=== PATIENT | male | born 1945 | race Caucasian/White ===

== ENCOUNTER → 2017-10-07 | Outpatient (CLI) | payer MEDICARE ==
--- NOTE | 2017-10-07 12:21 | CONS ---
CONSULTATION DATE OF SERVICE: 10/07/2018 A 72-year-old gentleman who has been evaluated in the sleep center for possible obstructive sleep apnea-hypopnea syndrome. HISTORY OF PRESENT ILLNESS/SLEEP-WAKE EVALUATION: Patient usual sleep schedule from around 10 to 10:30 p.m. until 6 to 7 a.m. Sometimes he has problem with falling asleep, although no TV in bedroom. He sleeps in different positions including the side, back and stomach. According to the patient's , he has extremely loud snoring and she cannot sleep with him. He wakes up from sleep 3 times with nocturia. No history of hypnagogic hallucinations, sleep paralysis or cataplexy. The patient wakes up also with a dry mouth. In the morning, patient wakes up tired, feeling sleepy during the day, has sexual dysfunction. [place] Sleepiness Scale significantly increased to 13. PAST MEDICAL HISTORY: Positive for hypertension, hyperlipidemia, diabetes mellitus. PAST SURGICAL HISTORY: Total left knee replacement in 2006. MEDICATIONS: Bisoprolol, amlodipine, pravastatin, enalapril, doxazosin, Janumet. SOCIAL HISTORY: Negative for smoking or using alcohol. FAMILY HISTORY: Family history is unknown. He left his country by himself many years ago. REVIEW OF SYSTEMS: Multiple awakenings from sleep, sleepiness during the day, sometimes swelling of the legs. No fevers. No double vision. No recent chest pain. No shortness of breath. No abdominal pain. No bleeding episodes. No blood in urine. No seizure episodes. PHYSICAL EXAM: During physical exam, gentleman without distress. VITAL SIGNS: BP 138/72, HR 62, RR 16, height 5 feet 5 inches, weight 234, BMI 38.9. HEENT: PERRLA, EOMI. Oropharynx extremely low position of soft palate, wide neck is 17- 1/2 inches in circumference. NECK: Wide neck 17-1/2 inches in circumference. Supple, no JVD. Thyroid is not palpable. LUNGS: Clear to percussion and to auscultation. Good air exchange. No wheezing or rhonchi. HEART: S1, S2 regular. No murmurs, gallops, or rubs. ABDOMEN: Obese. EXTREMITIES: 1+ bilateral ankle edema. DEMOLITION ENGINEER: Awake, alert, and oriented X3. Cranial nerves 2 to 7 intact. There is no fasciculation or atrophy. noted. No focal deficits observed. IMPRESSION: 1. Loud snoring, multiple awakenings from sleep with nocturia, extremely low position of soft palate, sleepiness during the day. [place] Sleepiness Scale increased to 13, wide neck. Obstructive sleep apnea-hypopnea syndrome. 2. Obesity, body mass index 38.9. 3. Hypertension. 4. Diabetes mellitus. 5. Hyperlipidemia. 6. Status post total left knee replacement in 2006. PLAN: 1. Polysomnography for evaluation of patient's breathing during sleep. 2. CPAP/BiPAP titration if sleep study confirms obstructive sleep apnea-hypopnea syndrome. 3. Preferable position during sleep on the side. 4. No driving if patient feels any sleepiness. Patient is aware of civil and criminal liability for unsafe driving. 5. I will see patient for follow up visit to explain results of testing and following plan. Thank you very much for referring this patient for consultation. Sincerely, Keegan Curry MD, PhD, FAASM Diplomat of [place] [employer] [place] [employer] Mixer Pigment of [facility] [place] MMODL / SHAUNAN: [id number] /
== END | disposition home or self-care (01) ==
LOC: SLEEP 10:54
PROVIDERS: ATTEND Internal Medicine
DX: G47.33 Obstructive sleep apnea (adult) (pediatric) (principal); E66.9 Obesity, unspecified; I10 Essential (primary) hypertension; E11.9 Type 2 diabetes mellitus without complications; E78.5 Hyperlipidemia, unspecified; Z96.652 Presence of left artificial knee joint; Z79.899 Other long term (current) drug therapy; Z68.38 Body mass index [BMI] 38.0-38.9, adult; Z79.84 Long term (current) use of oral hypoglycemic drugs
CPT/HCPCS: 99211

== ENCOUNTER → 2018-01-19 | Outpatient (CLI) | payer MEDICARE ==
--- NOTE | 2018-01-19 15:11 | PN ---
PROGRESS NOTE DATE OF SERVICE: 01/19/2019 A 72-year-old gentleman who has been followed in the Sleep Center for treatment of obstructive sleep apnea-hypopnea syndrome. By results of home sleep test, patient has obstructive sleep apnea-hypopnea syndrome and I explained results of the sleep study to the patient in details. He was started on treatment with auto PAP treatment and today is his first visit for followup with his CPAP equipment. Patient is able to use CPAP equipment without significant problems and he thinks that his sleep is better with CPAP than before and feels better during the day. [place] Sleepiness Scale is 6. I checked his CPAP unit. Usage is 28/30 nights and 26/30 nights more than 4 hours. Average usage is 6.4 hours. Machine is automatic regimen from the pressure 5-11 cm of water. Medium pressure is 10.5 cm of water. Apnea-hypopnea index 7.5. Sometimes, patient feels that his mouth feels dry. He is using a full-face mask. MEDICATIONS: Bisoprolol, amlodipine, pravastatin, enalapril, doxazosin, Janumet. PHYSICAL EXAM: Patient in no distress. BP 141/78, HR 68, RR 20, weight 238.2, height 5, 5-1/2, body mass index 39.0, temperature 97.7. OROPHARYNX: Low position of soft palate. ABDOMEN: Obese. Neck Supple, no JVD. Thyroid is not palpable. LUNGS Clear to percussion and to auscultation. Good air exchange. No wheezing or rhonchi. HEART S1, S2 regular. No murmurs, gallops, or rubs. EXTREMITIES No clubbing or cyanosis. [employer] Awake, alert, and oriented X3. Cranial nerves 2 to 7 intact. There is no fasciculation or atrophy. noted. No focal deficits observed. IMPRESSION: 1. Obstructive sleep apnea-hypopnea syndrome. Patient demonstrated great compliance with treatment, benefitting from treatment. 2. Obesity. 3. Hypertension. 4. Hyperlipidemia. 5. Diabetes. PLAN: 1. Patient will continue to use CPAP equipment every night for the whole night. 2. I will increase pressure to maximal level of 15 cm of water. 3. Losing weight. 4. Sleep hygiene with regular time in bed for at least 8 hours. 5. No driving if feels any sleepiness. 6. I will explain to patient how to adjust humidifier on his machine and I will adjust humidity to the high level. Thank you very much for allowing me to participate in the management of your patient. Sincerely, Keegan Curry MD, PhD, FAASM Diplomat of [place] [employer] [place] [employer] Certified Indoor Environmentalist of [facility] [place] MMDEVONTE / MOI: [id number] /
== END | disposition home or self-care (01) ==
LOC: SLEEP 13:29
PROVIDERS: ATTEND Internal Medicine
DX: G47.33 Obstructive sleep apnea (adult) (pediatric) (principal); E66.9 Obesity, unspecified; I10 Essential (primary) hypertension; E78.5 Hyperlipidemia, unspecified; E11.9 Type 2 diabetes mellitus without complications; Z68.39 Body mass index [BMI] 39.0-39.9, adult; Z99.89 Dependence on other enabling machines and devices; Z79.899 Other long term (current) drug therapy

== ENCOUNTER 2018-02-25 19:10 | Emergency (ER) | payer MEDICARE ==
[2018-02-25 19:42] VITALS: PULSE 76
--- NOTE | 2018-02-25 20:38 | XR ---
EXAMINATION TYPE: XR elbow complete RT DATE OF EXAM: 02/25/2018 COMPARISON: NONE HISTORY: Elbow pain TECHNIQUE: 3 views FINDINGS: I see no fracture nor dislocation. There is a large spur on the olecranon process of the ul na. There is posterior soft tissue swelling. There is no sign of joint effusion. Calcification at the medial humeral condyle consistent with old injury. IMPRESSION: No acute bony abnormality. Large olecranon process spur. Soft tissue swelling.
[2018-02-25] MEDS ORDERED: HYDROcodone/APAP 5-325MG 1 EACH TAB PO STA (21:21)
--- NOTE | 2018-02-25 21:24 | ED ---
General Adult HPI - General Chief complaint: Extremity Injury, Lower Stated complaint: Arm Pain Time Seen by Provider: 02/25/18 21:06 Source: patient, family Mode of arrival: ambulatory Limitations: no limitations - History of Present Illness Initial comments: Patient is a 72-year-old male presenting for right elbow pain for last 3 days. He states that several years ago, he was diagnosed with bursitis in the right elbow. Currently, he denies any injury and states that he has been able to move the elbow but there is some decreased range of motion and some redness at the elbow. He denies any fevers or chills currently. - Related Data Previous Rx's Medication Instructions Recorded HYDROcodone/APAP 5-325MG [[place] 1 tab PO Q6HR PRN #12 tab 02/25/18 5-325] Sulfamethox-Tmp 800-160Mg [Bactrim 1 tab PO Q12HR 14 Days #28 tab 02/25/18 DS 800-160 mg] Allergies Allergy/AdvReac Type Severity Reaction Status Date / Time ibuprofen [From Motrin] Allergy Unknown Verified 02/25/18 19:43 Review of Systems ROS Statement: Those systems with pertinent positive or pertinent negative responses have been documented in the HPI. Constitutional: Negative for chills, fatigue and fever. HENT: Negative for congestion. Respiratory: Negative for chest tightness, shortness of breath and wheezing. Negative for cough Cardiovascular: Negative for chest pain and palpitations. Gastrointestinal: Negative for abdominal pain. Negative for abdominal distention , diarrhea, nausea and vomiting. Genitourinary: Negative for dysuria. Musculoskeletal: Negative for back pain, neck pain and neck stiffness. Positive for right elbow pain and decreased range of motion Skin: Negative for color change. Positive for erythema of the skin overlying the olecranon process Neurological: Negative for dizziness, speech difficulty, weakness and light- headedness. Psychiatric/Behavioral: Negative for agitation and confusion. Negative for anxiety ROS Other: All systems not noted in ROS Statement are negative. Past Medical History Past Medical History: Diabetes Mellitus, Hyperlipidemia, Hypertension History of Any Multi-Drug Resistant Organisms: None Reported Past Surgical History: Orthopedic Surgery Past Psychological History: No Psychological Hx Reported Smoking Status: Never smoker Past Alcohol Use History: None Reported Past Drug Use History: None Reported General Exam - General Exam Comments Initial Comments: Constitutional: Pt is oriented to person, place, and time. Pt appears well- developed and well-nourished. No distress. HENT: Head: Normocephalic and atraumatic. Eyes: EOM are normal. Neck: Normal range of motion. Neck supple. Cardiovascular: Normal rate, regular rhythm, S1 normal, S2 normal and normal heart sounds. Exam reveals no gallop and no friction rub. No murmur heard. Pulmonary/Chest: Effort normal and breath sounds normal. No tachypnea and no bradypnea. No respiratory distress. No wheezes or rales noted. Abdominal: Soft. Bowel sounds are normal. Pt exhibits no shifting dullness, no distension, no pulsatile liver, no fluid wave, no abdominal bruit and no ascites. There is no tenderness. There is no rigidity, no rebound, no guarding, no tenderness at McBurney's point and negative Thakkar's sign. Musculoskeletal: Decreased range of motion of the right elbow with extension limited to 160. There is mild tenderness to palpation of the olecranon process and elbow is able to be actively ranged without significant tenderness. Neurological: Pt is alert and oriented to person, place, and time. No cranial nerve deficit. Skin: Skin is warm and dry. No rash noted. Pt is not diaphoretic. No erythema. No pallor. Psychiatric: Pt has a normal mood and affect. Pt behavior is normal. Thought content normal. Limitations: no limitations Course Vital Signs 02/25/18 02/25/18 19:31 23:36 Temperature 98.5 F 97 F L Pulse Rate 76 76 Respiratory 20 16 Rate Blood Pressure 166/81 173/89 O2 Sat by Pulse 97 96 Oximetry Medical Decision Making - Medical Decision Making Laboratory studies showed that there is no leukocytosis and CRP was elevated at 30.8 but he is sore was within normal limits. Additionally, x-ray of the elbow showed no evidence of emergent pathology such as osteomyelitis. Because the patient did have good range of motion, it is felt that septic joint is extremely unlikely considering the lab findings and that this appears to be more likely septic bursitis. Because of this, is felt that the patient could be safely discharged with very close follow-up with orthopedics. He was also given a prescription for Bactrim.Explained all labs and diagnostic test results and that we will discharge the patient home and patient is to follow up with orthopedics in 1-2 days and return to the ED if symptoms worsen. Pt is agreeable to plan. - Lab Data Result diagrams: 02/25/18 21:50 02/25/18 21:50 Lab Results 02/25/18 02/25/18 Range/Units 21:50 21:50 WBC 7.7 (3.8-10.6) k/uL RBC 4.95 (4.30-5.90) m/uL Hgb 13.4 (13.0-17.5) gm/dL Hct 40.1 (39.0-53.0) % MCV 81.0 (80.0-100.0) fL MCH 27.1 (25.0-35.0) pg MCHC 33.4 (31.0-37.0) g/dL RDW 14.6 (11.5-15.5) % Plt Count 164 (150-450) k/uL Neutrophils % 70 % Lymphocytes % 18 % Monocytes % 7 % Eosinophils % 3 % Basophils % 1 % Neutrophils # 5.4 (1.3-7.7) k/uL Lymphocytes # 1.3 (1.0-4.8) k/uL Monocytes # 0.5 (0-1.0) k/uL Eosinophils # 0.2 (0-0.7) k/uL Basophils # 0.0 (0-0.2) k/uL ESR 15 (0-15) mm/hr Sodium 141 (137-145) mmol/L Potassium 3.9 (3.5-5.1) mmol/L Chloride 105 (98-107) mmol/L Carbon Dioxide 29 (22-30) mmol/L Anion Gap 7 mmol/L BUN 25 H (9-20) mg/dL Creatinine 1.30 H (0.66-1.25) mg/dL Est GFR (CKD-EPI)AfAm 63 (>60 ml/min/1.73 sqM) Est GFR (CKD-EPI)NonAf 55 (>60 ml/min/1.73 sqM) Glucose 113 H (74-99) mg/dL Calcium 10.4 H (8.4-10.2) mg/dL Magnesium 1.9 (1.6-2.3) mg/dL C-Reactive Protein 30.8 H (<10.0) mg/L Disposition Clinical Impression: Olecranon bursitis, right elbow Disposition: HOME SELF-CARE Condition: Good Instructions: Elbow Bursitis (ED) Prescriptions: HYDROcodone/APAP 5-325MG [[place] 5-325] 1 tab PO Q6HR PRN #12 tab PRN Reason: Pain Sulfamethox-Tmp 800-160Mg [Bactrim DS 800-160 mg] 1 tab PO Q12HR 14 Days #28 tab Is patient prescribed a controlled substance at d/c from ED?: Yes When asked, does pt state using other controlled substances?: No If prescribed controlled substance>3 days was MAPS reviewed?: Prescribed <3 Days Referrals: Chalo Arvizu MD [Primary Care Provider] - 1-2 days Mason Reyna MD [STAFF PHYSICIAN] - 1-2 days Time of Disposition: 23:29
[2018-02-25 22:01] LABS: Basophils % (A) 1 %; Eosinophils # (A) 0.2 k/uL (0-0.7); Eosinophils % (A) 3 %; HCT 40.1 % (39.0-53.0); HGB 13.4 gm/dL (13.0-17.5); Lymphocytes # (A) 1.3 k/uL (1.0-4.8); Lymphocytes % (A) 18 %; MCH 27.1 pg (25.0-35.0); MCHC 33.4 g/dL (31.0-37.0); Mean Platelet Volume 7.3; Monocytes # (A) 0.5 k/uL (0-1.0); Monocytes % (A) 7 %; Neutrophils # (A) 5.4 k/uL (1.3-7.7); Neutrophils % (A) 70 %; Platelet Count 164 k/uL (150-450); RBC 4.95 m/uL (4.30-5.90); RDW 14.6 % (11.5-15.5); WBC 7.7 k/uL (3.8-10.6)
[2018-02-25 22:20] LABS: C Reactive Protein 30.8 mg/L (<10.0); Calcium 10.4 mg/dL (8.4-10.2); Magnesium 1.9 mg/dL (1.6-2.3); Potassium 3.9 mmol/L (3.5-5.1)
[2018-02-25 23:14] LABS: Erythrocyte Sedimentation Rate 15 mm/hr (0-15)
[2018-02-25] MEDS ORDERED: SULFAMETHOX-TMP 800-160MG 1 EACH TAB PO STA (23:31)
[2018-02-25 23:39] VITALS: BP 173/89; RESP 16; TEMP 97
== END 2018-02-25 23:41 | disposition home or self-care (01) ==
LOC: EC 19:10
DX: M70.21 Olecranon bursitis, right elbow (principal); R79.82 Elevated C-reactive protein (CRP); Z88.6 Allergy status to analgesic agent
CPT/HCPCS: 36415; 80048; 83735; 85025; 85652; 86140; 99283

== ENCOUNTER → 2018-04-28 | Outpatient (CLI) | payer MEDICARE ==
--- NOTE | 2018-04-28 12:45 | SFUN ---
SLEEP CENTER FOLLOW UP NOTE DATE OF SERVICE: 04/28/2018 This 72-year-old gentleman has been followed in sleep center for treatment of obstructive sleep apnea-hypopnea syndrome. The patient continued to use his CPAP equipment every night for the whole night. Sleep is better with that except sometimes feels dryness in his mouth. He always has water in the humidifier chamber. [place] Sleepiness Scale today is 2. I checked his CPAP unit. Range of the pressure 5 to 11 cm of water. Most of the time pressure in the range of 11 cm of water. Leak is 22 L/minute, which is borderline. Apnea-hypopnea index 5.5 for the last month, which is significantly better than during previous visit when it was 7.5. Usage is 100% of the night more than 4 hours. Average usage is 7.1 hours. MEDICATIONS: Bisoprolol, amlodipine, pravastatin, enalapril, doxazosin, Janumet. PHYSICAL EXAMINATION: During physical exam, patient in no distress. VITAL SIGNS: BP 144/74, HR 62, RR 16, weight 235, height 5 feet 5 inches, body mass index 39.1, temperature 97.6, oxygen saturation in room air 96%. HEENT: PERRLA, EOMI. Oropharynx low position of soft palate. NECK: Supple, no JVD. Thyroid is not palpable. LUNGS: Clear to percussion and to auscultation. Good air exchange. No wheezing or rhonchi. HEART: S1, S2 regular. No murmurs, gallops, or rubs. ABDOMEN: Soft and nontender. Bowel sounds are present. No organomegaly appreciated. EXTREMITIES: No clubbing or cyanosis. TONE REGULATOR: Awake, alert, and oriented X3. Cranial nerves 2 to 7 intact. There is no fasciculation or atrophy. noted. No focal deficits observed. IMPRESSION: 1. Obstructive sleep apnea-hypopnea syndrome. The patient demonstrated 100% compliance with treatment, benefitting from treatment, normalization of breathing on CPAP. 2. Obesity. 3. Hypertension. 4. Hyperlipidemia. 5. Diabetes mellitus. PLAN: 1. Prescription for additional chinstrap. 2. I explained to the patient how to adjust humidity on his CPAP unit and I adjusted humidity up to level of 6 instead of 4 and we switched to manual adjustments from automatic. 3. The patient will continue to use CPAP equipment every night for the whole night. 4. Losing weight. 5. Prescription for all necessary CPAP supplies will be maintained. 6. Followup visit in 1 year or earlier if patient has any problems. Thank you very much for allowing me to participate in management of your patient. Sincerely, Keegan Curry MD, PhD, FAASM Diplomat of [employer] [place] [employer] of Medical Specialties [employer] [place] [employer] of Internal Medicine Pattern Setter of [facility] [place] MMODL / IJN: [id number] /
== END ==
LOC: SLEEP 10:51
PROVIDERS: ATTEND Internal Medicine
DX: G47.33 Obstructive sleep apnea (adult) (pediatric) (principal); E66.9 Obesity, unspecified; I10 Essential (primary) hypertension; E78.5 Hyperlipidemia, unspecified; E11.9 Type 2 diabetes mellitus without complications; Z99.89 Dependence on other enabling machines and devices; Z79.84 Long term (current) use of oral hypoglycemic drugs; Z79.899 Other long term (current) drug therapy; Z68.39 Body mass index [BMI] 39.0-39.9, adult

== ENCOUNTER → 2018-12-08 | Outpatient (CLI) | payer MEDICARE ==
--- NOTE | 2018-12-08 16:48 | PN ---
PROGRESS NOTE DATE OF SERVICE: 12/08/2018 This patient is a 73-year-old gentleman who has been followed in Sleep Center for treatment of obstructive sleep apnea-hypopnea syndrome. The patient continues to use his CPAP equipment every night but sometimes feels that the pressure is too high in the middle of the night and he has difficulties with the pressure. He is using a full-face mask. I checked his CPAP unit. It is in automatic regimen with the range of pressure from 5 to 15. Most of the time pressure is in the range of 11.3. Leak is 35 L/minute, which is borderline for the full-face mask. Apnea-hypopnea index 8.1. Patient is using the equipment every night, and in / nights for more than 4 hours with average usage 6.1 hours per night, which is normal compliance. [place] Sleepiness Scale today is 3, which is normal. MEDICATIONS: 1. Bisoprolol. 2. Amlodipine. 3. Pravastatin. 4. Enalapril. 5. Doxazosin. 6. Janumet. PHYSICAL EXAMINATION: GENERAL: A pleasant patient in no distress. VITAL SIGNS: BP 145/80, HR 73, RR 16, height 5 feet 7 inches, weight 232, which is 3 pounds less than during his previous visit, temperature 97.6, oxygen saturation at room air 96%. HEENT: PERRLA, EOMI. Evaluation of oropharynx showed tongue protrudes midline. Low position of soft palate. Mallampati IV. NECK: Supple. No JVD. Thyroid is not palpable. LUNGS: Clear to percussion and to auscultation. Good air exchange. No wheezing or rhonchi. HEART: S1, S2 regular. No murmurs, gallops or rubs. ABDOMEN: Obese. EXTREMITIES: No clubbing or cyanosis. TIRE GROOVER: Awake, alert, and oriented X3. Cranial nerves 2 to 7 intact. There is no fasciculation or atrophy. noted. No focal deficits observed. IMPRESSION: 1. Obstructive sleep apnea-hypopnea syndrome. Patient has demonstrated great compliance with treatment, benefitting from treatment. 2. The patient has difficulties in the middle of the night; he feels the pressure is high. 3. Obesity. 4. Hypertension. 5. Hyperlipidemia. 6. Diabetes mellitus. PLAN: 1. Patient will continue to use CPAP equipment every night for the whole night. 2. I will change the maximum pressure of the machine down to 11 cm of water. 3. Continue to lose weight. 4. Sleep hygiene with regular time in bed for 7-1/2 hours. 5. No driving if feeling any sleepiness. Thank you very much for allowing me to participate in the management of your patient. Sincerely, Keegan Curry MD, PhD, FAASM Diplomat of [place] [employer]ties [place] [employer] Medicine Director Of Safety And Security of [facility] [place] MMODL / IJN: [id number] /
== END | disposition home or self-care (01) ==
LOC: SLEEP 15:21
PROVIDERS: ATTEND Internal Medicine
DX: G47.33 Obstructive sleep apnea (adult) (pediatric) (principal); E66.9 Obesity, unspecified; I10 Essential (primary) hypertension; E78.5 Hyperlipidemia, unspecified; E11.9 Type 2 diabetes mellitus without complications; Z99.89 Dependence on other enabling machines and devices; Z79.84 Long term (current) use of oral hypoglycemic drugs; Z79.899 Other long term (current) drug therapy; Z68.36 Body mass index [BMI] 36.0-36.9, adult

== ENCOUNTER → 2020-03-06 | Outpatient (CLI) | payer MEDICARE ==
--- NOTE | 2020-03-06 23:05 | US ---
EXAMINATION TYPE: US scrotum with doppler. Grayscale and color Doppler Duplex imaging performed of t jyoti scrotum. DATE OF EXAM: 03/06/2020 COMPARISON: NONE CLINICAL HISTORY: Left groin pain R10.32. edema left testicle, pain EXAM MEASUREMENTS: TESTICLES: Right Testicle: 4.2 x 2.3 x 2.6 cm Left Testicle: 4.0 x 2.2 x 3.2 cm EPIDIDYMIS HEAD: Right Epididymis: 0.9 cm Left Epididymis: 0.7 cm Doppler performed to assess for testicular vascularity; good bilateral color flow and waveforms are s een. There is no evidence of testicular torsion. Presence of hydroceles: yes, fluid collection = 5.5cm on the right and 5.1cm on the left Presence of varicoceles: prominent vessels lateral to left testicle IMPRESSION: Bilateral hydroceles.
== END | disposition home or self-care (01) ==
LOC: RADUSWWP 03-05 16:01
PROVIDERS: ATTEND Family Medicine
DX: N43.3 Hydrocele, unspecified (principal)
CPT/HCPCS: 76870; 93975

== ENCOUNTER → 2020-04-01 | Outpatient (CLI) | payer MEDICARE ==
--- NOTE | 2020-04-01 13:55 | CT ---
EXAMINATION TYPE: CT abdomen pelvis w con DATE OF EXAM: 04/01/2020 COMPARISON: None HISTORY: Left sided inguinal hernia. CT DLP: 1939.4 mGycm Automated exposure control for dose reduction was used. TECHNIQUE: Helical acquisition of images from the lung bases through the pelvis have been completed. CONTRAST: Performed without Oral Contrast and with IV Contrast, patient injected with 80ml mL of Isovue 300. FINDINGS: There may be calcified right hilar node. There is a pericardial effusion measuring approxim ately 16 mm in greatest thickness adjacent to the right atrium, coronal image #39. LUNG BASES: No significant abnormality is appreciated. AORTA: No significant abnormality is appreciated. LIVER/GB: Liver is enlarged and shows low-attenuation suggesting hepatic steatosis, gallbladder is no rmal. PANCREAS: No significant abnormality is seen. SPLEEN: No significant abnormality is seen. ADRENALS: No significant abnormality is seen. KIDNEYS: Probable cortical cysts associated with the kidneys, there is no evident hydronephrosis or c alculus REPRODUCTIVE ORGANS: No significant abnormality is seen BOWEL: Left inguinal hernia contains colon extending to the left hemiscrotum level, sigmoid colon do es show associated diverticular change. FREE AIR: No Free Air visible. ASCITES: None visible. PELVIC ADENOPATHY: None visualized. RETROPERITONEAL ADENOPATHY: No Retroperitoneal Adenopathy visible. URINARY BLADDER: No significant abnormality is seen. OSSEOUS STRUCTURES: Degenerative disc changes and facet arthropathy noted in the lumbar spine. IMPRESSION: PERICARDIAL EFFUSION. LEFT INGUINAL HERNIA DESCRIBED. HEPATOMEGALY, HEPATIC STEATOSIS.
== END | disposition home or self-care (01) ==
LOC: RADCTMAIN 11:32
PROVIDERS: ATTEND Surgery
DX: I31.3 Pericardial effusion (noninflammatory) (principal); K40.90 Unilateral inguinal hernia, without obstruction or gangrene, not specified as recurrent; K76.0 Fatty (change of) liver, not elsewhere classified; R16.0 Hepatomegaly, not elsewhere classified
CPT/HCPCS: 82565; 84520; 74177; 36415; Q9967

== ENCOUNTER → 2020-05-22 | Outpatient (CLI) | payer MEDICARE | END | disposition home or self-care (01) | LOC: LABWHC1 11:26 | PROVIDERS: ATTEND Family Medicine | DX: Z20.828 Contact with and (suspected) exposure to other viral communicable diseases (principal) | CPT/HCPCS: U0003; C9803 ==

== ENCOUNTER 2020-06-18 06:34 | Day surgery (SDC) | payer MEDICARE ==
[2020-06-17 08:20] VITALS: BMI 28.6
[~2020-06-18 06:34] MED LIST: ALPRAZolam 0.25 MG TAB PO PRN; ALPRAZolam 0.5 MG TAB PO PRN; NITROGLYCERIN SL TABS 0.4 MG TAB SUBLINGUAL PRN; SODIUM CHLORIDE 0.9% 1,000 ML in EMPTY BAG 1 BAG IV ONE
[2020-06-18] MEDS ORDERED: SODIUM CHLORIDE 0.9% 1,000 ML IV ONE (06:54)
[2020-06-18] MEDS ORDERED: amLODIPine 5 MG TAB PO STA (06:56)
[2020-06-18] MEDS ORDERED: lisinopriL 20 MG TAB PO STA ×2 (06:56→07:22)
[2020-06-18] MEDS ORDERED: ASPIRIN 325 MG TAB PO ONE (07:00)
[2020-06-18] MEDS ORDERED: ATORVASTATIN 80 MG TAB PO ONE (07:00)
[2020-06-18 07:10] VITALS: TEMP 98.1
[2020-06-18 07:14] LABS: Basophils % (A) 1 %; Eosinophils # (A) 0.2 k/uL (0-0.7); Eosinophils % (A) 4 %; HCT 37.3 % (39.0-53.0); HGB 12.2 gm/dL (13.0-17.5); Lymphocytes # (A) 1.2 k/uL (1.0-4.8); Lymphocytes % (A) 20 %; MCH 26.6 pg (25.0-35.0); MCHC 32.7 g/dL (31.0-37.0); MCV 81.4 fL (80.0-100.0); Mean Platelet Volume 7.2; Monocytes # (A) 0.4 k/uL (0-1.0); Monocytes % (A) 7 %; Neutrophils # (A) 4.1 k/uL (1.3-7.7); Neutrophils % (A) 67 %; Platelet Count 177 k/uL (150-450); RBC 4.58 m/uL (4.30-5.90); WBC 6.2 k/uL (3.8-10.6)
[2020-06-18 07:22] LABS: Glucose,Whole Blood 137 mg/dL (75-99)
[2020-06-18 07:29] LABS: Calcium 9.9 mg/dL (8.4-10.2)
[2020-06-18 07:32] LABS: Potassium 4.7 mmol/L (3.5-5.1)
[2020-06-18] MEDS ORDERED: MIDAZOLAM 2 MG/2 ML VIAL IVP ONE ×2 (07:59→08:09)
[2020-06-18] MEDS ORDERED: LIDOCAINE 1% INJ 10MG/ML (10 ML MDV) SQ ONE (08:01)
[2020-06-18] MEDS ORDERED: HEPARIN SODIUM 1,000 UN/ML (10ML VL) IV ONE (08:03)
[2020-06-18] MEDS ORDERED: VERAPAMIL SYRINGE (5 MG/10 ML) INTRAARTER ONE (08:03)
[2020-06-18] MEDS ORDERED: IOPAMIDOL-370 125ML BTL INJ ONE (08:21)
[2020-06-18] MEDS ORDERED: RX INFO: IV CONTRAST WAS GIVEN 1 EACH MISC MISCELLANE PRN (08:26)
[2020-06-18] MEDS ORDERED: SODIUM CHLORIDE 0.9% 1,000 ML IV SCH (08:30)
--- NOTE | 2020-06-18 09:55 | CC ---
CARDIAC CATHETERIZATION REPORT DATE OF SERVICE: 06/18/2020 PERFORMING PHYSICIAN: Chris Marie MD. PROCEDURE PERFORMED: 1. Selective right and left coronary angiogram. 2. Left heart catheterization. INDICATION: This is a 75-year-old gentleman with hypertension and dyslipidemia and history of smoking as well as diabetes, who was referred for preoperative assessment before noncardiac surgery. He is going to undergo left inguinal hernia repair in the next few weeks. He was seen in the office recently where myocardial perfusion imaging stress test was performed and revealed a large fixed defect involving the inferolateral wall of the LV. He was scheduled to undergo a heart catheterization. APPROACH: Right radial artery. COMPLICATION: None. LEVEL OF SEDATION: Moderate with sedation length of 25 minutes. PROCEDURE DESCRIPTION: After obtaining an informed consent, the patient was brought to the cardiac custodial laborer. The right radial artery was cannulated using micropuncture technique, the micropuncture wire passed easily. Then, I placed a 6-Turkmen sheath. I gave the patient 2 mg of verapamil IA and 6000 units of heparin IV. Selective right and left coronary angiogram performed with JR4 and JL3.5 catheters. Left heart catheterization was performed using 5-Turkmen pigtail catheter. The procedure was completed without any complication. SELECTIVE CORONARY ANGIOGRAM: 1. The right coronary artery is a large caliber vessel and is a dominant vessel. The RCA has intermediate to severe lesion in the midportion, appeared to be in the range of 60% to 70%. The RCA distally bifurcates into PDA and PLV branches, both appeared to have mild diffuse disease. 2. The left main is calcified with mild disease only. It bifurcates into LCX and LAD. 3. The LCX is a large caliber vessel, it is a nondominant vessel. The LCX proximally has mild disease only and gives rise into OM1 which is a large caliber vessel with mild disease only. The circumflex in the midportion has another lesion appeared to be in the range of 40% to 50%. The circumflex distally appeared to be angiographically normal. 4. The LAD, the proximal LAD appeared to have a tubular lesion seems to be extremely calcified and seems to be in the range of 60% to 70%. This is by the bifurcation of a large diagonal branch. The mid LAD appeared to have mild disease only and gives rise into a second diagonal branch which seems to be normal. The LAD distally by the apex has another lesion, appeared to be in the range of 70%. 5. HEMODYNAMICS: The LVEDP was 10 mmHg without significant gradient across the aortic valve. CONCLUSION: 1. Calcified right and left coronary systems. 2. Intermediate to severe lesion involving the mid RCA. 3. Intermediate to severe lesion involving the proximal LAD. 4. Intermediate lesion involving the LCX. POSTPROCEDURE MANAGEMENT: 1. Maximize medical treatment at this point. 2. Discussed the case with the surgeon who is going to perform hernia surgery on the patient. 3. Probably an FFR of the LAD with possible atherectomy and stenting. If the FFR is ischemic and that probably have can happen either before or after the surgery. 4. Follow up with the patient. MMODL / IJN: [id number] /
[2020-06-18 11:04] VITALS: RESP 16
[2020-06-18 14:17] VITALS: BP 148/72; PULSE 72
== END 2020-06-18 14:00 | disposition home or self-care (01) ==
LOC: CATHCVL 06:34
PROVIDERS: ATTEND Internal Medicine Interventional Cardiology
DX: I25.10 Atherosclerotic heart disease of native coronary artery without angina pectoris (principal); I25.84 Coronary atherosclerosis due to calcified coronary lesion; I10 Essential (primary) hypertension; R94.39 Abnormal result of other cardiovascular function study; E78.00 Pure hypercholesterolemia, unspecified; E11.9 Type 2 diabetes mellitus without complications; E78.5 Hyperlipidemia, unspecified; Z79.84 Long term (current) use of oral hypoglycemic drugs; Z79.899 Other long term (current) drug therapy; Z88.6 Allergy status to analgesic agent
CPT/HCPCS: 93458; 80048; 85025; C1769 ×3; C1894; J2250; J1644; J2001; Q9967

== ENCOUNTER 2020-06-28 12:23 | Day surgery (SDC) | payer MEDICARE ==
[2020-06-26 10:04] VITALS: BMI 35.3
[~2020-06-28 12:23] MED LIST changes: -ALPRAZolam 0.25 MG TAB PO PRN; -ALPRAZolam 0.5 MG TAB PO PRN; +DEXAMETHASONE SOD PHOSPHATE 4 MG/ML 1 ML VIAL IV ONE; +HEPARIN SODIUM,PORCINE 5,000 UNIT/ML 1 ML VIAL SQ PRN; +HYDROmorphone 0.5 MG/0.5 ML SYRINGE IVP PRN; +MIDAZOLAM 2 MG/2 ML VIAL IV PRN; -NITROGLYCERIN SL TABS 0.4 MG TAB SUBLINGUAL PRN; +ONDANSETRON 4 MG/2 ML VIAL IVP ONE; -SODIUM CHLORIDE 0.9% 1,000 ML in EMPTY BAG 1 BAG IV ONE
[2020-06-28 13:07] LABS: Glucose,Whole Blood 116 mg/dL (75-99)
[2020-06-28] MEDS: LACTATED RINGERS 1,000 ML IV SCH ×2 (13:16→18:12)
[2020-06-28] MEDS ORDERED: MIDAZOLAM 2 MG/2 ML VIAL ONE (13:17)
[2020-06-28] MEDS ORDERED: fentaNYL (PF) 50 MCG/ML 2 ML AMP ONE (13:17)
[2020-06-28] MEDS ORDERED: LACTATED RINGERS 1,000 ML IV ONE ×2 (13:22→16:17)
[2020-06-28] MEDS ORDERED: BUPIVACAINE-EPI 0.5%-1:200,000 10 ML VIAL SQ ONE (13:43)
--- NOTE | 2020-06-28 14:43 | P.GSHP ---
History of Present Illness H&P Date: 06/28/20 75-year-old male presents today secondary to left inguinal hernia and plan for elective inguinal hernia repair. He was evaluated in surgery clinic. Recommendation was made for the patient to follow with cardiology for clearance prior to the procedure. Patient did undergo a cardiac catheterization and recommendation was made that the patient undergo procedure under spinal. This was discussed with anesthesiology. Otherwise, patient denies any significant additional pain in the left groin from baseline. He denies any nausea or vomiting or obstructive symptoms. - Review of Systems All systems: negative Past Medical History Past Medical History: Diabetes Mellitus, Hyperlipidemia, Hypertension, Sleep Apnea/CPAP/BIPAP Additional Past Medical History / Comment(s): CPAP use. History of Any Multi-Drug Resistant Organisms: None Reported Past Surgical History: Heart Catheterization, Joint Replacement Additional Past Surgical History / Comment(s): Knee replacement. Eye surgery. Past Anesthesia/Blood Transfusion Reactions: No Reported Reaction Past Psychological History: No Psychological Hx Reported Smoking Status: Former smoker Past Alcohol Use History: Occasional Additional Past Alcohol Use History / Comment(s): Quit smoking in 1979. Past Drug Use History: None Reported - Past Family History Mother Family Medical History: No Reported History Medications and Allergies Home Medications Medication Instructions Recorded Confirmed Type Aspirin [Adult Low Dose Aspirin EC] 81 mg PO DAILY 06/17/20 06/26/20 History Doxazosin Mesylate 8 mg PO BID 06/17/20 06/26/20 History Dutasteride 0.5 mg PO HS 06/17/20 06/26/20 History Enalapril [Vasotec] 20 mg PO BID 06/17/20 06/26/20 History amLODIPine [Norvasc] 5 mg PO QAM 06/17/20 06/26/20 History sitaGLIPtin PHOS/metFORMIN HCL 1 each PO BID 06/17/20 06/26/20 History [Janumet 50-500 mg Tablet] Atorvastatin [Lipitor] 40 mg PO DAILY 06/28/20 06/28/20 History Docusate [Colace] 100 mg PO BID #20 capsule 06/28/20 Rx HYDROcodone/APAP 5-325MG [[place] 1 tab PO Q6HR PRN 3 Days #12 tab 06/28/20 Rx 5-325] Allergies Allergy/AdvReac Type Severity Reaction Status Date / Time ibuprofen [From Motrin] Allergy Unknown Verified 12/18/20 12:50 Surgical - Exam Osteopathic Statement: *. No significant issues noted on an osteopathic structural exam other than those noted in the History and Physical/Consult. Vital Signs Temp Pulse Resp BP Pulse Ox 97.2 F L 78 16 185/84 96 06/28/20 13:16 06/28/20 13:16 06/28/20 13:16 06/28/20 13:16 06/28/20 13:16 - General well nourished, no distress - Abdomen Left inguinal hernia, palpable and reducible - Psychiatric oriented to time, oriented to person, oriented to place Results - Labs Abnormal Lab Results - Last 24 Hours (Table) 06/28/20 Range/Units 13:06 POC Glucose (mg/dL) 116 H (75-99) mg/dL Assessment and Plan Plan: 75-year-old male with left inguinal hernia, containing: Plan is for elective open left inguinal hernia repair under spinal anesthetic. This was discussed with cardiology prior to surgical procedure along with anesthesia. The patient was explained the risks, benefits and alternatives to the procedure, especially secondary to his cardiac condition, and was insistent with surgery. He did provide consent prior to attending the operating suite.
--- NOTE | 2020-06-28 14:46 | P.OP ---
Date of Procedure: 06/28/20 Preoperative Diagnosis: Left inguinal hernia Postoperative Diagnosis: Left inguinal sliding hernia Procedure(s) Performed: Open left inguinal hernia repair with mesh placement Anesthesia: spinal Surgeon: Elkin Sylvester Pathology: none sent Condition: stable Disposition: same day Indications for Procedure: 75-year-old male with complaints of left groin pain. On workup, patient was found to have a left sliding inguinal hernia containing sigmoid colon. Based on patient's medical history, cardiology evaluation was recommended prior to surgical procedure. Patient did undergo cardiac catheterization with recommendation of spinal anesthetic with future cardiac intervention. The patient was explained the risks, benefits and alternatives to the procedure and did provide consent prior to attending the operating suite. Operative Findings: Left inguinal hernia containing sigmoid colon Description of Procedure: The patient was brought into the operating suite and spinal anesthetic was administered. The patient was then placed supine on the operating table. Patient was prepped and draped in regular sterile fashion. A left inguinal incision was made and dissection was carried towards the external oblique aponeurosis. The aponeurosis was then incised and this incision was carried towards the external ring and up towards the ASIS. The spermatic cord was then visualized and elevated with a [place] drain. The hernia sac was clearly visib le and was noted to contain bowel. The hernia sac was entered and a significant amount of sigmoid colon was noted. The sigmoid colon was then reduced through the internal ring. The internal ring was noted to be significantly dilated. Multiple 3-0 Vicryl sutures were used to reapproximate the internal ring and tighten the ring. Exam was then performed of the hernia floor. The hernia floor was noted to be significantly weakened. Multiple 3-0 interrupted Vicryl sutures were used to strengthen the floor of the hernia. At this point, a left- sided anatomic parietex progrip mesh was placed and was noted to be secure without any wrinkles or folds. A 0 Vicryl suture was used to secure the mesh to the pubis. At this point the external oblique aponeurosis was reapproximated while re-creating an external ring. This was done with a running 3-0 Vicryl suture. The wound was then closed in layers with 30 and 4-0 Vicryl subcuticular suture. Sterile dressing was applied. The patient was awakened in the operating suite and taken to postanesthesia care unit in stable condition.
[2020-06-28] MEDS ORDERED: HYDROmorphone 0.5 MG/0.5 ML SYRINGE IVP ONE (15:30)
[2020-06-28 17:06] VITALS: TEMP 98.1
[2020-06-28 19:40] VITALS: BP 163/85; PULSE 82; RESP 17
[2020-06-28] MEDS ORDERED: HYDROcodone/APAP 5-325MG 1 EACH TAB PO STA (20:49)
== END 2020-06-28 21:00 | disposition home or self-care (01) ==
LOC: OR 12:23 → 5NMEDONC 14:41 → OR 21:00
PROVIDERS: ATTEND Surgery
DX: K40.90 Unilateral inguinal hernia, without obstruction or gangrene, not specified as recurrent (principal); I25.10 Atherosclerotic heart disease of native coronary artery without angina pectoris; G47.33 Obstructive sleep apnea (adult) (pediatric); E11.9 Type 2 diabetes mellitus without complications; I10 Essential (primary) hypertension; E78.5 Hyperlipidemia, unspecified; Z87.891 Personal history of nicotine dependence; Z79.82 Long term (current) use of aspirin; Z79.899 Other long term (current) drug therapy; Z79.84 Long term (current) use of oral hypoglycemic drugs; Z88.8 Allergy status to other drugs, medicaments and biological substances; Z98.890 Other specified postprocedural states; Z96.659 Presence of unspecified artificial knee joint
CPT/HCPCS: 86900; 86901; 86850; 49525; J2250; J1644; J1100; J0690; J2405; J3010; J1170

== ENCOUNTER → 2021-01-28 | Outpatient (CLI) | payer MEDICARE ==
--- NOTE | 2021-01-28 10:43 | XR ---
EXAMINATION TYPE: XR elbow complete LT DATE OF EXAM: 01/28/2021 CLINICAL HISTORY: Pain TECHNIQUE: Frontal, lateral and oblique images of the left elbow are obtained. COMPARISON: None FINDINGS: There is no acute fracture/dislocation evident in the left elbow. There are marked degener ative changes of the left elbow with bony fragmentation seen posteromedially. There is an elbow joint effusion. IMPRESSION: There is no acute fracture/dislocation evident in the left elbow. There are marked degen erative changes of the left elbow with bony fragmentation seen posteromedially. There is an elbow claus nt effusion.
--- NOTE | 2021-01-28 10:44 | XR ---
EXAMINATION TYPE: XR shoulder complete LT DATE OF EXAM: 01/28/2021 CLINICAL HISTORY: Pain TECHNIQUE: Three views of the left shoulder are obtained. COMPARISON: None. FINDINGS: There is no acute fracture/dislocation evident in the left shoulder. There are marked dege nerative changes of the left glenohumeral joint. Degenerative changes are also seen in the left acrom ioclavicular joint. IMPRESSION: Chronic changes of the left shoulder, as described.
== END | disposition home or self-care (01) ==
LOC: RADXRMAIN 10:09
PROVIDERS: ATTEND Family Medicine
DX: M25.422 Effusion, left elbow (principal); M50.323 Other cervical disc degeneration at C6-C7 level; M50.123 Cervical disc disorder at C6-C7 level with radiculopathy; Z98.1 Arthrodesis status

== ENCOUNTER 2022-03-23 08:50 | Day surgery (SDC) | payer MEDICARE ==
[2022-03-20 12:16] VITALS: BMI 34.7
[~2022-03-23 08:50] MED LIST changes: +ALPRAZolam 0.25 MG TAB PO PRN; +ALPRAZolam 0.5 MG TAB PO PRN; -DEXAMETHASONE SOD PHOSPHATE 4 MG/ML 1 ML VIAL IV ONE; -HEPARIN SODIUM,PORCINE 5,000 UNIT/ML 1 ML VIAL SQ PRN; -HYDROmorphone 0.5 MG/0.5 ML SYRINGE IVP PRN; -MIDAZOLAM 2 MG/2 ML VIAL IV PRN; +NITROGLYCERIN SL TABS 0.4 MG TAB SUBLINGUAL PRN; -ONDANSETRON 4 MG/2 ML VIAL IVP ONE; +SODIUM CHLORIDE 0.9% 1,000 ML in EMPTY BAG 1 BAG IV ONE
[2022-03-23] MEDS ORDERED: ASPIRIN 81 MG ONE (09:23)
[2022-03-23 09:29] LABS: Glucose,Whole Blood 143 mg/dL (70-110)
[2022-03-23 09:41] LABS: Basophils # (A) 0.1 k/uL (0-0.2); Basophils % (A) 1 %; Eosinophils # (A) 0.2 k/uL (0-0.7); Eosinophils % (A) 4 %; HCT 38.6 % (39.0-53.0); HGB 12.4 gm/dL (13.0-17.5); Lymphocytes # (A) 1.4 k/uL (1.0-4.8); Lymphocytes % (A) 22 %; MCH 27.2 pg (25.0-35.0); MCHC 32.1 g/dL (31.0-37.0); MCV 84.8 fL (80.0-100.0); Mean Platelet Volume 8.8; Monocytes # (A) 0.4 k/uL (0-1.0); Monocytes % (A) 6 %; Neutrophils # (A) 4.2 k/uL (1.3-7.7); Neutrophils % (A) 66 %; Platelet Count 166 k/uL (150-450); RBC 4.55 m/uL (4.30-5.90); WBC 6.4 k/uL (3.8-10.6)
[2022-03-23] MEDS ORDERED: VERAPAMIL 2.5 MG/ML 2 ML AMP ONE (10:34)
[2022-03-23] MEDS ORDERED: HEPARIN SODIUM 1,000 UN/ML (10ML VL) ONE ×2 (10:34→11:01)
[2022-03-23] MEDS ORDERED: MIDAZOLAM 2 MG/2 ML VIAL IVP ONE ×2 (10:44→11:04)
[2022-03-23] MEDS ORDERED: LIDOCAINE 1% INJ 10MG/ML (30 ML VIAL-PF) SQ ONE (10:46)
[2022-03-23] MEDS ORDERED: VERAPAMIL SYRINGE (5 MG/10 ML) INTRAARTER ONE (10:48)
[2022-03-23] MEDS ORDERED: HEPARIN SODIUM 1,000 UN/ML (10ML VL) IVP ONE (10:50)
[2022-03-23] MEDS ORDERED: IOPAMIDOL-370 125ML BTL INJ ONE ×3 (10:58→11:35)
[2022-03-23] MEDS ORDERED: HEPARIN SODIUM 1,000 UN/ML (10ML VL) IV ONE (11:04)
[2022-03-23] MEDS ORDERED: TICAGRELOR 90 MG TAB ONE (11:34)
[2022-03-23] MEDS ORDERED: TICAGRELOR 90 MG TAB PO ONE (11:36)
[2022-03-23] MEDS ORDERED: MAG HYDROX/AL HYDROX/SIMETH 30 ML CUP PO PRN (11:43)
[2022-03-23] MEDS ORDERED: RX INFO: IV CONTRAST WAS GIVEN 1 EACH MISC MISCELLANE PRN (11:43)
[2022-03-23] MEDS ORDERED: NITROGLYCERIN SL TABS 0.4 MG TAB SUBLINGUAL PRN (11:43)
[2022-03-23] MEDS ORDERED: ZOLPIDEM 5 MG TAB PO PRN (11:43)
[2022-03-23] MEDS ORDERED: ATROPINE SULFATE 0.1 MG/ML 10ML SYRINGE IV PRN (11:43)
[2022-03-23] MEDS ORDERED: SODIUM CHLORIDE 0.9% 1,000 ML in EMPTY BAG 1 BAG IV SCH (11:45)
--- NOTE | 2022-03-23 11:49 | P.PCN ---
Date of Procedure: 03/23/22 Operative Findings: CARDIAC CATHETERIZATION AND PERCUTANEOUS CORONARY INTERVENTION PERFORMING PHYSICIAN: Chris Marie MD, [facility] PROCEDURE PERFORMED: 1. Selective right and left coronary angiogram 2. Left heart catheterization 3. iFR of the LAD 4. Successful stenting of proximal LAD using 3.5 x 23 mm Xience COLE which with an excellent angiographic results INDICATION: This is a 76-year-old gentleman with CAD as well as diabetes and hypertension and the stability who underwent recently myocardial perfusion imaging stress test as part of preop cardiac assessment before noncardiac surgery. That came in to be abnormal with evidence of high risk features. In the light of that heart catheterization was advised COMPLICATION: None APPROACH: Right radial artery LEVEL OF SEDATION: Moderate with the sedation time off 49 minutes PROCEDURE DESCRIPTION: After obtaining an informed consent the patient was brought to the cardiac label machine operator. The right radial artery was cannulated using micropuncture technique, the micropuncture wire passed easily then I placed a 6-Thai sheath. I gave the patient 2 mg of verapamil intra-arterial and 6000 use of heparin IV. Selective right and left coronary angiogram performed using JR4 and JL 3.5 catheters. Left heart catheterization was not performed. After that I did intervene on the LAD SELECTIVE CORONARY ANGIOGRAM: The right coronary artery: Large caliber vessel nondominant vessel. It appeared to have mild disease only. Left main: Large caliber vessel was mild disease distally. Bifurcates into LCx and LAD The left circumflex: Large caliber vessel nondominant vessel. The LCx appeared to have mild to moderate diffuse disease. Proximally gives rises into a large OM branch which appeared to be angiographically normal The left anterior descending artery: The proximal LAD by the bifurcation of the large diagonal and till the bifurcation of the large septal vendor representatives has a tubular lesion appears to be in the range of 50%. We did an FFR and that came in to be ischemic. The mid and distal LAD appears to have [id number] diffuse disease only. PCI OF THE LAD: Anticoagulation was initiated using heparin with continuous ACT monitoring. Subsequent. Engage the left main using JL 3.5 guiding catheter. Before engagement of the left main and after zeroing the Doppler wire and equalizing between the Doppler wire and the guiding catheter with an iFR and that came in to be ischemic at 0.79. Subsequently did predilatation using 3.0 mm balloon before I deployed 3.5 x 23 mm stent where the stent was positioned under fluoroscopy guidance and deployed under fluoroscopy guidance. I postdilated the stent using 3.75 mm balloon. Final angiogram showed excellent angiographic results of the procedure was completed without any complication CONCLUSION: Intermediate lesion involving the proximal LAD. IFR was ischemic. I did perform successful stenting of the LAD POSTPROCEDURE MANAGEMENT: #1 dual antiplatelet therapy using dual antiplatelet therapy for at least 6 month with aspirin and Brilinta #2 aggressive cholesterol control #3 follow-up with the patient
[2022-03-23 17:14] LABS: Glucose,Whole Blood 166 mg/dL (70-110)
[2022-03-23] MEDS: DOXAZOSIN 4 MG TAB PO SCH (20:11)
[2022-03-23] MEDS: lisinopriL 20 MG TAB PO SCH (20:11)
[2022-03-23] MEDS: TICAGRELOR 90 MG TAB PO SCH (20:11)
[2022-03-23 20:12] LABS: Glucose,Whole Blood 164 mg/dL (70-110)
[2022-03-23] MEDS ORDERED: FINASTERIDE 5 MG TAB PO SCH (21:00)
[2022-03-23] MEDS ORDERED: ATORVASTATIN 40 MG TAB PO SCH (21:00)
[2022-03-23] MEDS ORDERED: NON FORMULARY DRUG (Sitagliptin Phos/Metformin Hcl [Janumet 50-500 Mg Tablet] 1 EACH Table PO SCH (21:00)
[2022-03-23] MEDS ORDERED: LINAGLIPTIN 5 MG TABLET PO SCH (21:00)
[2022-03-24 00:09] VITALS: RESP 18
[2022-03-24 04:51] VITALS: TEMP 97.8
[2022-03-24 06:23] LABS: Glucose,Whole Blood 138 mg/dL (70-110)
[2022-03-24 07:37] VITALS: BP 178/84; PULSE 71
[2022-03-24] MEDS ORDERED: amLODIPine 5 MG TAB PO SCH (09:00)
[2022-03-24] MEDS ORDERED: ASPIRIN 81 MG PO SCH (09:00)
[2022-03-24] MEDS: DOXAZOSIN 4 MG TAB PO SCH (09:26)
[2022-03-24] MEDS: TICAGRELOR 90 MG TAB PO SCH (09:26)
[2022-03-24] MEDS: lisinopriL 20 MG TAB PO SCH (09:27)
--- NOTE | 2022-03-24 12:07 | P.DS ---
Providers Attending physician: Chris Marie Consults: 03/23/22 11:43 Consult Physician Routine Consulting Provider: [facility] Consult Reason/Comments: Post Interventional patient Do you want consulting provider notified?: Already Contacted Primary care physician: Chalo Arvizu [facility] Course: This is 73 and gentleman was seen recently in the office for further cardiac evaluation of noncardiac surgery. He underwent myocardial perfusion imaging stress test and that came in to be abnormal showing moderate area of reversibility. He underwent a heart catheterization that revealed severe disease involving the LAD. He underwent successful stenting of the LAD He was seen this morning. He was asymptomatic from the cardiac vascular standpoint of view and he was also he was directly stable. The right radial site is soft and nontender and with no hematoma. The patient is going to be discharged on dual antiplatelet therapy and I'll follow-up with the patient in the office in a week Plan - Discharge Summary Discharge Rx Participant: No New Discharge Prescriptions: New Ticagrelor [Brilinta] 90 mg PO BID #60 tab Continue amLODIPine [Norvasc] 5 mg PO QAM Enalapril [Vasotec] 20 mg PO BID Doxazosin Mesylate 8 mg PO BID Dutasteride 0.5 mg PO HS Aspirin [Adult Low Dose Aspirin EC] 81 mg PO DAILY Atorvastatin [Lipitor] 40 mg PO HS No Action sitaGLIPtin PHOS/metFORMIN HCL [Janumet 50-500 mg Tablet] 1 each PO BID Discharge Medication List Aspirin [Adult Low Dose Aspirin EC] 81 mg PO DAILY 06/17/20 [History] Doxazosin Mesylate 8 mg PO BID 06/17/20 [History] Dutasteride 0.5 mg PO HS 06/17/20 [History] Enalapril [Vasotec] 20 mg PO BID 06/17/20 [History] amLODIPine [Norvasc] 5 mg PO QAM 06/17/20 [History] sitaGLIPtin PHOS/metFORMIN HCL [Janumet 50-500 mg Tablet] 1 each PO BID 06/17/20 [History] Atorvastatin [Lipitor] 40 mg PO HS 06/28/20 [History] Ticagrelor [Brilinta] 90 mg PO BID #60 tab 03/24/22 [Rx] Follow up Appointment(s)/Referral(s): Chris Marie MD [STAFF PHYSICIAN] - 03/30/22 11:45 am Patient Instructions/Handouts: Procedural Sedation (ED), Left Heart Catheterization (DC) Activity/Diet/Wound Care/Special Instructions: HOLD Janumet for 48 hours, resume Wed. Discharge Disposition: HOME SELF-CARE
[2022-03-25] MEDS ORDERED: metFORMIN 500 MG TAB PO SCH (21:00)
== END 2022-03-24 11:03 | disposition home or self-care (01) ==
LOC: CATHCVL 08:50 → 3SCARD 11:34 → CATHCVL 03-24 11:03
PROVIDERS: ATTEND Internal Medicine Interventional Cardiology
DX: I25.10 Atherosclerotic heart disease of native coronary artery without angina pectoris (principal); I25.5 Ischemic cardiomyopathy; E11.9 Type 2 diabetes mellitus without complications; E78.5 Hyperlipidemia, unspecified; I10 Essential (primary) hypertension; Z20.822 Contact with and (suspected) exposure to COVID-19
CPT/HCPCS: 93458; 93799; 82565; 85025; 87635; C9600; C1887 ×2; C1769 ×2; C1894; C1725 ×2; C1874; S0138; J2250; J2001; J1644; Q9967

== ENCOUNTER → 2022-06-11 | Outpatient (CLI) | payer MEDICARE ==
--- NOTE | 2022-06-12 12:20 | XR ---
EXAMINATION TYPE: XR hand complete LT DATE OF EXAM: 06/11/2022 COMPARISON: None HISTORY: Pain TECHNIQUE: 3 view left hand FINDINGS: Structures are osteopenic. This may make occult fractures more difficult to identify. Diffu se joint space narrowing is present. No acute fracture or dislocation is evident. More advanced degen erative changes at the first carpal metacarpal junction radiopaque foreign body may be within the sof t tissues of the distal portion anterior middle finger. Soft tissues are otherwise unremarkable Follow up exams can be performed 7-10 days with acute trauma for continued pain. IMPRESSION: 1. No acute osseous abnormality. 2. Osteopenia.
== END | disposition home or self-care (01) ==
LOC: RADXRMAIN 15:59
PROVIDERS: ATTEND Family Medicine
DX: M85.80 Other specified disorders of bone density and structure, unspecified site (principal); M79.642 Pain in left hand

== ENCOUNTER → 2022-07-07 | Outpatient (CLI) | payer MEDICARE ==
--- NOTE | 2022-07-07 14:03 | US ---
EXAMINATION TYPE: US kidneys/renal and bladder DATE OF EXAM: 07/07/2022 COMPARISON: CT 04/01/2020 CLINICAL HISTORY: 77-year-old male E11.9 TYPE 2 DIABETES MELLITUS WITHOUT COMPLICATION. TECHNIQUE: Multiple sonographic images of the kidneys and bladder are obtained. FINDINGS: EXAM MEASUREMENTS: Right Kidney: 10.8 x 5.7 x 5.4 cm Left Kidney: 13.4 x 5.6 x 7.0 cm Right Kidney: Hyperechoic focus seen: 0.4 x 0.6 x 0.4 cm. No hydronephrosis. Left Kidney: Slightly asymmetrically larger. No hydronephrosis. Benign 6.3 cm mid pole cyst. Versus 6 .0 cm in 2020. Additional round hypoechoic lesion at the upper pole measuring 3.1 cm. Posterior throu gh-transmission is noted. Internal echoes could be artifactual or could represent debris. Likely josi esponds to the 3.6 cm cyst seen on CT. Bladder: Underdistention limiting its evaluation. Bilateral Jets seen: Yes IMPRESSION: 1. No hydronephrosis. 2. Possible 6 mm nonobstructive right renal calculus. 3. A couple cysts within the left kidney measuring up to 6.3 cm.
== END | disposition home or self-care (01) ==
LOC: RADUSWWP 11:42
PROVIDERS: ATTEND Family Medicine
DX: N28.1 Cyst of kidney, acquired (principal); E11.9 Type 2 diabetes mellitus without complications
CPT/HCPCS: 76770

== ENCOUNTER 2023-01-04 21:06 | Emergency (ER) | payer MEDICARE ==
[2023-01-04] MEDS ORDERED: SODIUM CHLORIDE 0.9% 1,000 ML IV STA (21:19)
[2023-01-04 21:49] VITALS: BP 133/73; PULSE 97; RESP 26
[2023-01-04 22:01] LABS: Basophils % (A) 0 %; Eosinophils # (A) 0.1 k/uL (0-0.7); Eosinophils % (A) 1 %; HCT 29.9 % (39.0-53.0); HGB 9.6 gm/dL (13.0-17.5); Lymphocytes # (A) 0.6 k/uL (1.0-4.8); Lymphocytes % (A) 7 %; MCH 26.5 pg (25.0-35.0); MCHC 32.2 g/dL (31.0-37.0); MCV 82.5 fL (80.0-100.0); Mean Platelet Volume 8.1; Monocytes # (A) 0.5 k/uL (0-1.0); Monocytes % (A) 5 %; Neutrophils # (A) 7.3 k/uL (1.3-7.7); Neutrophils % (A) 84 %; Platelet Count 173 k/uL (150-450); RBC 3.63 m/uL (4.30-5.90); RDW 15.1 % (11.5-15.5); WBC 8.6 k/uL (3.8-10.6)
--- NOTE | 2023-01-04 22:10 | XR ---
EXAMINATION TYPE: XR chest 1V portable DATE OF EXAM: 01/04/2023 HISTORY: Shortness of breath. COMPARISON: None. TECHNIQUE: Single view of the chest is submitted. FINDINGS: Demonstrated are scattered senescent parenchymal change. There is no evidence for focal infiltrate. Cardiomegaly without evidence for congestive failure at this time. Hilar and mediastinal structures are within normal limits. Degenerative changes are seen of the dorsal spine. IMPRESSION: 1. Chronic changes without evidence for acute pulmonary disease.
[2023-01-04 22:14] LABS: ALT 18 U/L (4-49); AST 34 U/L (17-59); African American GFR (CKD) 39 (>60 ml/min/1.73 sqM); Alkaline Phosphatase 100 U/L (38-126); Anion Gap 8 mmol/L; Blood Urea Nitrogen 35 mg/dL (9-20); Calcium 9.3 mg/dL (8.4-10.2); Carbon Dioxide 22 mmol/L (22-30); Chloride 108 mmol/L (98-107); Glucose 185 mg/dL (74-99); Magnesium 2.1 mg/dL (1.6-2.3); Non-African American GFR(CKD) 33 (>60 ml/min/1.73 sqM); Phosphorus 2.3 mg/dL (2.5-4.5); Potassium 4.2 mmol/L (3.5-5.1); Sodium 138 mmol/L (137-145); Total Bilirubin 1.1 mg/dL (0.2-1.3); Total Protein 5.7 g/dL (6.3-8.2)
[2023-01-04 22:21] LABS: Partial Thromboplastin Time 26.1 sec (22.0-30.0); Prothrombin Time 10.5 sec (9.0-12.0)
--- NOTE | 2023-01-04 22:35 | ED ---
Fever HPI - General Chief Complaint: Fever Stated Complaint: post surgical fever Time Seen by Provider: 01/04/23 21:18 Source: patient, family, RN notes reviewed, old records reviewed Mode of arrival: wheelchair Limitations: no limitations - History of Present Illness Initial Comments: This is a 77-year-old male to the ER today. Patient presents today for evaluation of fever. This is a postoperative fever patient recently had hernia surgery Patient's family did call patient's surgeon who told patient coming the emergency department for evaluation open hernia surgery repair. Patient noticed fever tonight he did take Tylenol prior to arrival. MD Complaint: fever, malaise, weakness -: days(s) Temperature Source: subjective Context: multiple patients with similar symptoms Associated Symptoms: chills, rigors Treatments Prior to Arrival: Acetaminophen - Related Data Home Medications Medication Instructions Recorded Confirmed Aspirin [Adult Low Dose Aspirin EC] 81 mg PO DAILY 06/17/20 01/04/23 Doxazosin Mesylate 8 mg PO BID 06/17/20 01/04/23 Dutasteride 0.5 mg PO HS 06/17/20 01/04/23 Enalapril [Vasotec] 20 mg PO BID 06/17/20 01/04/23 amLODIPine [Norvasc] 5 mg PO DAILY 06/17/20 01/04/23 sitaGLIPtin PHOS/metFORMIN HCL 1 tab PO BID 06/17/20 01/04/23 [Janumet 50-500 mg Tablet] Atorvastatin [Lipitor] 40 mg PO HS 06/28/20 01/04/23 LORazepam [Ativan] 2 mg PO DAILY PRN 01/04/23 01/04/23 Latanoprost [Latanoprost 0.005%] 1 drop BOTH EYES HS 01/04/23 01/04/23 Metoprolol Succinate (ER) [Toprol 25 mg PO DAILY 01/04/23 01/04/23 Xl] Olopatadine HCl [Patanol 0.1%] 1 drop BOTH EYES BID 01/04/23 01/04/23 methocarbamoL [Methocarbamol] 750 mg PO Q8H PRN 01/04/23 01/04/23 oxyCODONE HCL [OxyIR] 5 mg PO Q4H PRN 01/04/23 01/04/23 Previous Rx's Medication Instructions Recorded Ticagrelor [Brilinta] 90 mg PO BID #60 tab 03/24/22 Allergies Allergy/AdvReac Type Severity Reaction Status Date / Time ibuprofen [From Motrin] Allergy Unknown Verified 01/04/23 22:25 Review of Systems ROS Statement: Those systems with pertinent positive or pertinent negative responses have been documented in the HPI. ROS Other: All systems not noted in ROS Statement are negative. Past Medical History Past Medical History: Diabetes Mellitus, Hyperlipidemia, Hypertension, Sleep Apnea/CPAP/BIPAP Additional Past Medical History / Comment(s): CPAP use. History of Any Multi-Drug Resistant Organisms: None Reported Past Surgical History: Heart Catheterization, Hernia Repair, Joint Replacement Additional Past Surgical History / Comment(s): Knee replacement. Eye surgery. Past Anesthesia/Blood Transfusion Reactions: No Reported Reaction Past Psychological History: No Psychological Hx Reported Smoking Status: Former smoker Past Alcohol Use History: Occasional Past Drug Use History: None Reported - Past Family History Mother Family Medical History: No Reported History General Exam Limitations: no limitations General appearance: alert, in no apparent distress Head exam: Present: atraumatic, normocephalic, normal inspection Eye exam: Present: normal appearance, PERRL, EOMI. Absent: scleral icterus, conjunctival injection, periorbital swelling ENT exam: Present: normal exam, mucous membranes moist Neck exam: Present: normal inspection. Absent: tenderness, meningismus, lymphadenopathy Respiratory exam: Present: normal lung sounds bilaterally. Absent: respiratory distress, wheezes, rales, rhonchi, stridor Cardiovascular Exam: Present: regular rate, normal rhythm, normal heart sounds. Absent: systolic murmur, diastolic murmur, rubs, gallop, clicks GI/Abdominal exam: Present: soft, normal bowel sounds. Absent: distended, tenderness, guarding, rebound, rigid Extremities exam: Present: normal inspection, full ROM, normal capillary refill. Absent: tenderness, pedal edema, joint swelling, calf tenderness Back exam: Present: normal inspection Neurological exam: Present: alert, oriented X3, CN II-XII intact Psychiatric exam: Present: normal affect, normal mood Skin exam: Present: warm, dry, intact, normal color. Absent: rash Course Vital Signs 01/04/23 01/04/23 01/04/23 21:08 21:23 21:30 Temperature 98.4 F Pulse Rate 103 H 97 Respiratory 18 21 Rate Blood Pressure 144/68 125/69 O2 Sat by Pulse 98 97 96 Oximetry 01/04/23 01/04/23 21:40 23:15 Temperature 98.2 F Pulse Rate 97 Respiratory 26 H Rate Blood Pressure 133/73 O2 Sat by Pulse 96 Oximetry - Reevaluation(s) Reevaluation #1: 01/04/23 22:35 medical records reviewed Reevaluation #2: 01/04/23 22:35 patient fevers currently resolved and he has no complaints Reevaluation #3: 01/05/23 01:54 patient has no specific abdominal pain here in the ER feels well Reevaluation #4: 01/04/23 22:35 Was pt. sent in by a medical professional or institution? @ -no Did you speak to anyone other than the patient for history? @ -no Did you review nursing and triage notes? @ -agree Were old charts reviewed? @ -no Differential Diagnosis? @ -prior EKG interpreted by me (3pts min.)? @ -yes X-rays interpreted by me (1pt min.)? @ -no CT interpreted by me (1pt min.)? @ -yes U/S interpreted by me (1pt. min.)? @ -no What testing was considered but not performed? (CT, X-rays, U/S, labs)? Why? @ -no What meds were considered but not given? Why? @ -no Did you discuss the management of the patient with other professionals? @ -no Did you reconcile home meds? @ -no Was smoking cessation discussed for >3mins.? @ -no Was critical care preformed (if so, how long)? @ -no Were there social determinants of health that impacted care today? How? (Homelessness, low income, unemployed, alcoholism, drug addiction, transportation, low edu. Level, literacy, decrease access to med. care, long-term, rehab)? @ -no Was there de-escalation of care discussed even if they declined? (Discuss DNR or withdrawal of care, Hospice)? @ -no What co-morbidities impacted this encounter? (DM, HTN, Smoking, COPD, CAD, Cancer, CVA, Hep., AIDS, mental health diagnosis, sleep apnea, morbid obesity)? @ -none Was patient admitted / discharged? @ -77 male to the emergency department for evaluation of postoperative fever and is found to have abscess here in the emergency department. Patient is placed on antibiotics will transferred back to [facility] under care of patient surgeon Dr. Aguilar Transferred to [facility] under care of his surgeon Admitted Undiagnosed new problem with uncertain prognosis? @ -no Drug Therapy requiring intensive monitoring for toxicity (Heparin, Nitro, Insulin, Cardizem)? @ -no Were any procedures done? @ -no Diagnosis/symptom? @ -Postoperative fever with postoperative abscess Acute, or Chronic, or Acute on Chronic? @ -no Uncomplicated (without systemic symptoms) or Complicated (systemic symptoms)? @ -uncomplicated Side effects of treatment? @ -no Exacerbation, Progression, or Severe Exacerbation] @ -no Poses a threat to life or bodily function? @ -Yes, fever sepsis abscess Reevaluation #5: 01/04/23 22:36 Differential Fever: Pneumonia, viral URI, endocarditis, myocarditis, pericarditis, otitis, sinusitis, peritonsillar Abscess, retropharyngeal Abscess, epiglottitis, peritonitis, appendicitis, Rosa Elena cystitis, diverticulitis, hepatitis, colitis, UTI, PID, TOA, pyelonephritis, prostatitis, epididymitis, meningitis, encephalitis, pulmonary embolism, CVA, thyroid storm, pancreatitis, adrenal crisis, cavernous sinus thrombosis, this is not meant to be an all-inclusive list. - Consultations Consultation #1: spoke with Dr. Aguilar regarding transfer, he accepts patient transferred to [facility] Medical Decision Making - Medical Decision Making 77 male to the emergency department for evaluation of postoperative fever and is found to have abscess here in the emergency department. Patient is placed on an tibiotics will transferred back to [facility] under care of patient surgeon Dr. Aguilar - Lab Data Result diagrams: 01/04/23 21:38 01/04/23 21:38 Lab Results 01/04/23 01/04/23 01/04/23 Range/Units 21:38 21:38 21:38 WBC 8.6 (3.8-10.6) k/uL RBC 3.63 L (4.30-5.90) m/uL Hgb 9.6 L (13.0-17.5) gm/dL Hct 29.9 L (39.0-53.0) % MCV 82.5 (80.0-100.0) fL MCH 26.5 (25.0-35.0) pg MCHC 32.2 (31.0-37.0) g/dL RDW 15.1 (11.5-15.5) % Plt Count 173 (150-450) k/uL MPV 8.1 Neutrophils % 84 % Lymphocytes % 7 % Monocytes % 5 % Eosinophils % 1 % Basophils % 0 % Neutrophils # 7.3 (1.3-7.7) k/uL Lymphocytes # 0.6 L (1.0-4.8) k/uL Monocytes # 0.5 (0-1.0) k/uL Eosinophils # 0.1 (0-0.7) k/uL Basophils # 0.0 (0-0.2) k/uL PT 10.5 (9.0-12.0) sec INR 1.0 (<1.2) APTT 26.1 (22.0-30.0) sec Sodium (137-145) mmol/L Potassium (3.5-5.1) mmol/L Chloride (98-107) mmol/L Carbon Dioxide (22-30) mmol/L Anion Gap mmol/L BUN (9-20) mg/dL Creatinine (0.66-1.25) mg/dL Est GFR (CKD-EPI)AfAm (>60 ml/min/1.73 sqM) Est GFR (CKD-EPI)NonAf (>60 ml/min/1.73 sqM) Glucose (74-99) mg/dL Lactic Ac Sepsis Rflx Plasma Lactic Acid Richard (0.7-2.0) mmol/L Calcium (8.4-10.2) mg/dL Phosphorus (2.5-4.5) mg/dL Magnesium (1.6-2.3) mg/dL Total Bilirubin (0.2-1.3) mg/dL AST (17-59) U/L ALT (4-49) U/L Alkaline Phosphatase (38-126) U/L Troponin I (0.000-0.034) ng/mL NT-Pro-B Natriuret Pep pg/mL Total Protein (6.3-8.2) g/dL Albumin (3.5-5.0) g/dL TSH (0.465-4.680) mIU/L Urine Color Urine Appearance (Clear) Urine pH (5.0-8.0) Ur Specific [place] (1.001-1.035) Urine Protein (Negative) Urine Glucose (UA) (Negative) Urine Ketones (Negative) Urine Blood (Negative) Urine Nitrite (Negative) Urine Bilirubin (Negative) Urine Urobilinogen (<2.0) mg/dL Ur Leukocyte Esterase (Negative) Urine RBC (0-5) /hpf Urine WBC (0-5) /hpf Amorphous Sediment (None) /hpf Urine Bacteria (None) /hpf Urine Mucus (None) /hpf Influenza Type A (PCR) Not Detected (Not Detectd) Influenza Type B (PCR) Not Detected (Not Detectd) RSV (PCR) Not Detected (Not Detectd) SARS-CoV-2 (PCR) Not Detected (Not Detectd) 01/04/23 01/04/23 01/04/23 Range/Units 21:38 21:38 21:38 WBC (3.8-10.6) k/uL RBC (4.30-5.90) m/uL Hgb (13.0-17.5) gm/dL Hct (39.0-53.0) % MCV (80.0-100.0) fL MCH (25.0-35.0) pg MCHC (31.0-37.0) g/dL RDW (11.5-15.5) % Plt Count (150-450) k/uL MPV Neutrophils % % Lymphocytes % % Monocytes % % Eosinophils % % Basophils % % Neutrophils # (1.3-7.7) k/uL Lymphocytes # (1.0-4.8) k/uL Monocytes # (0-1.0) k/uL Eosinophils # (0-0.7) k/uL Basophils # (0-0.2) k/uL PT (9.0-12.0) sec INR (<1.2) APTT (22.0-30.0) sec Sodium 138 (137-145) mmol/L Potassium 4.2 (3.5-5.1) mmol/L Chloride 108 H (98-107) mmol/L Carbon Dioxide 22 (22-30) mmol/L Anion Gap 8 mmol/L BUN 35 H (9-20) mg/dL Creatinine 1.89 H (0.66-1.25) mg/dL Est GFR (CKD-EPI)AfAm 39 (>60 ml/min/1.73 sqM) Est GFR (CKD-EPI)NonAf 33 (>60 ml/min/1.73 sqM) Glucose 185 H (74-99) mg/dL Lactic Ac Sepsis Rflx Plasma Lactic Acid Richard 2.1 H* (0.7-2.0) mmol/L Calcium 9.3 (8.4-10.2) mg/dL Phosphorus 2.3 L (2.5-4.5) mg/dL Magnesium 2.1 (1.6-2.3) mg/dL Total Bilirubin 1.1 (0.2-1.3) mg/dL AST 34 (17-59) U/L ALT 18 (4-49) U/L Alkaline Phosphatase 100 (38-126) U/L Troponin I 0.034 (0.000-0.034) ng/mL NT-Pro-B Natriuret Pep pg/mL Total Protein 5.7 L (6.3-8.2) g/dL Albumin 3.0 L (3.5-5.0) g/dL TSH 0.519 (0.465-4.680) mIU/L Urine Color Urine Appearance (Clear) Urine pH (5.0-8.0) Ur Specific [place] (1.001-1.035) Urine Protein (Negative) Urine Glucose (UA) (Negative) Urine Ketones (Negative) Urine Blood (Negative) Urine Nitrite (Negative) Urine Bilirubin (Negative) Urine Urobilinogen (<2.0) mg/dL Ur Leukocyte Esterase (Negative) Urine RBC (0-5) /hpf Urine WBC (0-5) /hpf Amorphous Sediment (None) /hpf Urine Bacteria (None) /hpf Urine Mucus (None) /hpf Influenza Type A (PCR) (Not Detectd) Influenza Type B (PCR) (Not Detectd) RSV (PCR) (Not Detectd) SARS-CoV-2 (PCR) (Not Detectd) 01/04/23 01/04/23 01/04/23 Range/Units 21:38 22:21 22:41 WBC (3.8-10.6) k/uL RBC (4.30-5.90) m/uL Hgb (13.0-17.5) gm/dL Hct (39.0-53.0) % MCV (80.0-100.0) fL MCH (25.0-35.0) pg MCHC (31.0-37.0) g/dL RDW (11.5-15.5) % Plt Count (150-450) k/uL MPV Neutrophils % % Lymphocytes % % Monocytes % % Eosinophils % % Basophils % % Neutrophils # (1.3-7.7) k/uL Lymphocytes # (1.0-4.8) k/uL Monocytes # (0-1.0) k/uL Eosinophils # (0-0.7) k/uL Basophils # (0-0.2) k/uL PT (9.0-12.0) sec INR (<1.2) APTT (22.0-30.0) sec Sodium (137-145) mmol/L Potassium (3.5-5.1) mmol/L Chloride (98-107) mmol/L Carbon Dioxide (22-30) mmol/L Anion Gap mmol/L BUN (9-20) mg/dL Creatinine (0.66-1.25) mg/dL Est GFR (CKD-EPI)AfAm (>60 ml/min/1.73 sqM) Est GFR (CKD-EPI)NonAf (>60 ml/min/1.73 sqM) Glucose (74-99) mg/dL Lactic Ac Sepsis Rflx Y Plasma Lactic Acid Richard (0.7-2.0) mmol/L Calcium (8.4-10.2) mg/dL Phosphorus (2.5-4.5) mg/dL Magnesium (1.6-2.3) mg/dL Total Bilirubin (0.2-1.3) mg/dL AST (17-59) U/L ALT (4-49) U/L Alkaline Phosphatase (38-126) U/L Troponin I (0.000-0.034) ng/mL NT-Pro-B Natriuret Pep 3240 pg/mL Total Protein (6.3-8.2) g/dL Albumin (3.5-5.0) g/dL TSH (0.465-4.680) mIU/L Urine Color Yellow Urine Appearance Clear (Clear) Urine pH 5.5 (5.0-8.0) Ur Specific [place] 1.016 (1.001-1.035) Urine Protein 1+ H (Negative) Urine Glucose (UA) Negative (Negative) Urine Ketones Negative (Negative) Urine Blood Small H (Negative) Urine Nitrite Negative (Negative) Urine Bilirubin Negative (Negative) Urine Urobilinogen <2.0 (<2.0) mg/dL Ur Leukocyte Esterase Negative (Negative) Urine RBC 2 (0-5) /hpf Urine WBC 1 (0-5) /hpf Amorphous Sediment Rare H (None) /hpf Urine Bacteria Rare H (None) /hpf Urine Mucus Rare H (None) /hpf Influenza Type A (PCR) (Not Detectd) Influenza Type B (PCR) (Not Detectd) RSV (PCR) (Not Detectd) SARS-CoV-2 (PCR) (Not Detectd) - Radiology Data Radiology results: report reviewed (CT abdomen and pelvis is positive for postop erative surgery diverticulitis and abscess), image reviewed Disposition Clinical Impression: Fever, Postoperative fever, Postoperative abscess Disposition: OTHER INSTITUTION NOT DEFINED Condition: Serious Is patient prescribed a controlled substance at d/c from ED?: No Referrals: Chalo Arvizu MD [Primary Care Provider] - 1-2 days Time of Disposition: 02:00 - Out of Hospital Transfer - Req. Specs Out of Hospital Transfer - Requested Specifics: Other Emergency Center ([facility])
[2023-01-04 23:03] LABS: Amorphous Sediment,Urine Rare /hpf; Appearance,Urine Clear (Clear); Bacteria,Urine Rare /hpf; Bilirubin,Urine Negative (Negative); Blood,Urine Small (Negative); Color,Urine Yellow; Glucose,Urine (UA) Negative (Negative); Ketones,Urine Negative (Negative); Leukocyte Esterase,Urine Negative (Negative); Mucus,Urine Rare /hpf; Nitrite,Urine Negative (Negative); PH, Urine 5.5 (5.0-8.0); Protein,Urine 1+ (Negative); RBC,Urine 2 /hpf (0-5); Specific Gravity,Urine 1.016 (1.001-1.035); Urobilinogen,Urine <2.0 mg/dL (<2.0); WBC,Urine 1 /hpf (0-5)
[2023-01-04 23:15] VITALS: TEMP 98.2
[2023-01-04] MEDS ORDERED: SODIUM CHLORIDE 0.9% 500 ML 500 ML IV STA (23:27)
--- NOTE | 2023-01-05 01:20 | CT ---
EXAM: CT Abdomen and Pelvis With Intravenous Contrast CLINICAL HISTORY: ITS.REASON CT Reason: pain TECHNIQUE: Axial computed tomography images of the abdomen and pelvis with intravenous contrast. CTDI is 42.984 mGy and DLP is 2140.7 mGy-cm. This CT exam was performed using one or more of the following dose reduction techniques: automated exposure control, adjustment of the mA and/or kV according to patient size, and/or use of iterative reconstruction technique. COMPARISON: CT abdomen and pelvis 04/01/20 FINDINGS: Heart is enlarged. Pericardial effusion measures 18 mm. There is subsegmental atelectasis of the lung bases. There is trace left-sided pleural fluid. Patient is status post recent ventral hernia repair. Midline abdominal skin closure gonzález are noted. There is a loculated [id number] collection in the left lower quadrant of the abdomen, extending anterior to the urinary bladder, measuring roughly 9 x 4 x 13 cm (coronal image 45), concerning for abscess. There is inflammation of an adjacent segment of sigmoid colon in the setting of diverticula, potentially representing acute sigmoid diverticulitis. There is also a large complex fluid collection within the left inguinal canal extending to the left scrotum, imaged portion measuring 8 x 7 x 12 cm. There are internal regions of hyperdensity within this collection as well as a few foci of gas. There is no bowel obstruction. There is no evidence of appendicitis. Scattered foci of pneumoperitoneum in the upper abdomen are likely related to recent hernia repair. Liver, gallbladder, spleen, pancreas, and adrenal glands are unremarkable. There is no hydronephrosis. Simple left kidney cysts measure up to 6.5 cm; no further follow-up is required. There is aortoiliac atherosclerosis without aortic aneurysm. No adenopathy is visualized. There is no urinary bladder wall thickening. Urinary bladder extends slightly into a small right inguinal hernia. There are degenerative changes of the spine without acute osseous abnormality. IMPRESSION: 1. Loculated [id number]-jvp-[id number] collection in the left lower quadrant of the abdomen measuring up to 12 cm compatible with abscess. 2. Additional large loculated collection distending the left inguinal canal, incompletely imaged. The imaged portion measures up to 12 cm. This raises concern for hematoma versus abscess. 3. Diverticulosis with inflamed segment of proximal sigmoid colon, concerning for acute sigmoid diverticulitis. The inflamed segment of sigmoid colon sits adjacent to the left lower quadrant abscess. 4. Scattered upper abdominal pneumoperitoneum related to recent hernia repair. 5. Cardiomegaly with large pericardial effusion measuring 18 mm. <MYCVCSECTION> Communications: 01/05/23 01:22 Call Doctor Regarding Other, called Dr. Connelly on 01/05 01:22 (-04:00)
[2023-01-05] MEDS ORDERED: AMPICILLIN-SULBACTAM 3 GM in SODIUM CHLORIDE 0.9% 100 ML IVPB STA (01:52)
== END 2023-01-05 06:31 | disposition other institution (70) ==
LOC: EC 21:06
DX: T81.43XA Infection following a procedure, organ and space surgical site, initial encounter (principal); K57.30 Diverticulosis of large intestine without perforation or abscess without bleeding; I31.39 Other pericardial effusion (noninflammatory); E11.9 Type 2 diabetes mellitus without complications; E78.5 Hyperlipidemia, unspecified; I10 Essential (primary) hypertension; G47.30 Sleep apnea, unspecified; Z87.891 Personal history of nicotine dependence; Z79.899 Other long term (current) drug therapy; Z79.82 Long term (current) use of aspirin; Z79.84 Long term (current) use of oral hypoglycemic drugs; Z88.6 Allergy status to analgesic agent; Z20.822 Contact with and (suspected) exposure to COVID-19
CPT/HCPCS: 99285; 96365; 96361 ×8; 36415; 93005; 83880; 80053; 83605; 83735; 84100; 84443; 84484; 85025; 85610; 85730; 81001; 87040; 87636; 71045; 74177; J0295; Q9967

== ENCOUNTER 2023-06-13 00:09 | Inpatient (IN) | payer MEDICARE ==
[2023-06-13 00:52] LABS: Basophils % (A) 0 %; Eosinophils # (A) 0.3 k/uL (0-0.7); Eosinophils % (A) 3 %; HCT 35.6 % (39.0-53.0); HGB 11.6 gm/dL (13.0-17.5); Lymphocytes # (A) 1.7 k/uL (1.0-4.8); Lymphocytes % (A) 22 %; MCHC 32.6 g/dL (31.0-37.0); MCV 82.7 fL (80.0-100.0); Mean Platelet Volume 7.6; Monocytes # (A) 0.6 k/uL (0-1.0); Monocytes % (A) 8 %; Neutrophils % (A) 64 %; Platelet Count 162 k/uL (150-450); RDW 15.3 % (11.5-15.5); WBC 7.9 k/uL (3.8-10.6)
[2023-06-13 01:00] LABS: ALT 16 U/L (4-49); AST 20 U/L (17-59); African American GFR (CKD) 49 (>60 ml/min/1.73 sqM); Albumin 3.9 g/dL (3.5-5.0); Alkaline Phosphatase 105 U/L (38-126); Anion Gap 12 mmol/L; Blood Urea Nitrogen 25 mg/dL (9-20); Calcium 10.1 mg/dL (8.4-10.2); Carbon Dioxide 19 mmol/L (22-30); Chloride 110 mmol/L (98-107); Glucose 139 mg/dL (74-99); Non-African American GFR(CKD) 43 (>60 ml/min/1.73 sqM); Potassium 3.6 mmol/L (3.5-5.1); Sodium 141 mmol/L (137-145); Total Bilirubin 0.7 mg/dL (0.2-1.3); Total Protein 6.9 g/dL (6.3-8.2)
[2023-06-13 01:10] LABS: NT-Pro-B-Type Natriuretic Pept 7340 pg/mL
[2023-06-13 01:20] LABS: Prothrombin Time 11.2 sec (10.0-12.5)
[2023-06-13 01:21] LABS: Partial Thromboplastin Time 24.3 sec (22.0-30.0)
[2023-06-13] MEDS ORDERED: FUROSEMIDE 10 MG/ML 4 ML VIAL IV STA (01:41)
[2023-06-13] MEDS ORDERED: NALOXONE 0.4 MG/ML 1 ML VIAL IV PRN (01:43)
--- NOTE | 2023-06-13 01:45 | ED ---
SOB HPI - General Chief Complaint: Shortness of Breath Stated Complaint: SOB Time Seen by Provider: 06/13/23 00:20 Source: patient Mode of arrival: ambulatory Limitations: no limitations - History of Present Illness Initial Comments: 78-year-old male presenting with chief complaint of shortness of breath. As patient has had worsening shortness of breath for a few days. He also admits to cough and congestion. He saw his PCP and was started on what he assumed to be an antibiotic but is unsure which medication it was. He states that he cannot lay flat on his back of worsened symptoms. Admits to lower extremity swelling. No chest pain. No palpitations. No abdominal pain, nausea, vomiting, numbness, tingling, weakness. - Related Data Home Medications Medication Instructions Recorded Confirmed Aspirin [Adult Low Dose Aspirin EC] 81 mg PO DAILY 06/17/20 01/04/23 Doxazosin Mesylate 8 mg PO BID 06/17/20 01/04/23 Dutasteride 0.5 mg PO HS 06/17/20 01/04/23 Enalapril [Vasotec] 20 mg PO BID 06/17/20 01/04/23 amLODIPine [Norvasc] 5 mg PO DAILY 06/17/20 01/04/23 sitaGLIPtin PHOS/metFORMIN HCL 1 tab PO BID 06/17/20 01/04/23 [Janumet 50-500 mg Tablet] Atorvastatin [Lipitor] 40 mg PO HS 06/28/20 01/04/23 LORazepam [Ativan] 2 mg PO DAILY PRN 01/04/23 01/04/23 Latanoprost [Latanoprost 0.005%] 1 drop BOTH EYES HS 01/04/23 01/04/23 Metoprolol Succinate (ER) [Toprol 25 mg PO DAILY 01/04/23 01/04/23 Xl] Olopatadine HCl [Patanol 0.1%] 1 drop BOTH EYES BID 01/04/23 01/04/23 methocarbamoL [Methocarbamol] 750 mg PO Q8H PRN 01/04/23 01/04/23 oxyCODONE HCL [OxyIR] 5 mg PO Q4H PRN 01/04/23 01/04/23 Previous Rx's Medication Instructions Recorded Ticagrelor [Brilinta] 90 mg PO BID #60 tab 03/24/22 Allergies Allergy/AdvReac Type Severity Reaction Status Date / Time ibuprofen [From Motrin] Allergy Unknown Verified 06/13/23 00:13 Review of Systems ROS Statement: Those systems with pertinent positive or pertinent negative responses have been documented in the HPI. ROS Other: All systems not noted in ROS Statement are negative. Past Medical History Past Medical History: Diabetes Mellitus, Hyperlipidemia, Hypertension, Sleep Apnea/CPAP/BIPAP Additional Past Medical History / Comment(s): CPAP use. History of Any Multi-Drug Resistant Organisms: None Reported Past Surgical History: Heart Catheterization, Hernia Repair, Joint Replacement Additional Past Surgical History / Comment(s): Knee replacement. Eye surgery. Past Anesthesia/Blood Transfusion Reactions: No Reported Reaction Past Psychological History: No Psychological Hx Reported Smoking Status: Former smoker Past Alcohol Use History: Occasional Past Drug Use History: None Reported - Past Family History Mother Family Medical History: No Reported History General Exam Limitations: no limitations General appearance: alert, in no apparent distress Head exam: Present: atraumatic, normocephalic, normal inspection Eye exam: Present: normal appearance, EOMI Neck exam: Present: normal inspection, full ROM Respiratory exam: Present: rales. Absent: respiratory distress, wheezes, rhonchi, stridor Cardiovascular Exam: Present: regular rate, normal rhythm, normal heart sounds. Absent: systolic murmur, diastolic murmur, rubs, gallop, clicks Extremities exam: Present: pedal edema Neurological exam: Present: alert, oriented X3 Psychiatric exam: Present: normal affect, normal mood Skin exam: Present: warm, dry, intact, normal color. Absent: rash Course Vital Signs 06/13/23 06/13/23 00:10 01:32 Temperature 98.7 F Pulse Rate 77 64 Respiratory 22 18 Rate Blood Pressure 165/98 157/99 O2 Sat by Pulse 95 94 L Oximetry Medical Decision Making - Medical Decision Making Was pt. sent in by a medical professional or institution (, PA, INJURY PREVENTION COORDINATOR, urgent care, hospital, or skilled nursing...) When possible be specific @ -No Did you speak to anyone other than the patient for history (EMS, parent, family, police, friend...)? What history was obtained from this source @ -No Did you review nursing and triage notes (agree or disagree)? Why? @ -I reviewed and agree with nursing and triage notes Were old charts reviewed (outside hosp., previous admission, EMS record, old EKG, old radiological studies, urgent care reports/EKG's, skilled nursing records)? Report findings @ -No old charts were reviewed Differential Diagnosis (chest pain, altered mental status, abdominal pain women, abdominal pain men, vaginal bleeding, weakness, fever, dyspnea, syncope, headache, dizziness, GI bleed, back pain, seizure, CVA, palpatations, mental health, musculoskeletal)? @ -MDM Differential Dyspnea: Coronary syndrome, arrhythmia, tamponade, asthma, COPD, pulmonary embolism, pneumonia, pneumothorax, pulmonary effusion, anaphylaxis, diabetic ketoacidosis, flailed chest, pulmonary contusion, diaphragmatic rupture, anemia, neuromuscular this is not meant to be an all-inclusive list. EKG interpreted by me (3pts min.). @ -Sinus rhythm with first-degree AV block. Ventricular rate 78. AL interval 230. QRS 109. QT 356. QTC 390. X-rays interpreted by me (1pt min.). @ -Chest x-ray appears consistent with CHF CT interpreted by me (1pt min.). @ -None done U/S interpreted by me (1pt. min.). @ -None done What testing was considered but not performed or refused? (CT, X-rays, U/S, labs)? Why? @ -None What meds were considered but not given or refused? Why? @ -None Did you discuss the management of the patient with other professionals (professionals i.e. , PA, INJURY PREVENTION COORDINATOR, lab, RT, psych nurse, social worker school, family lawyer, teacher, veterinary medical officer, rn case manager)? Give summary @ -I spoke with Koby Arroyo from [facility] who accepted admission Was smoking cessation discussed for >3mins.? @ -No Was critical care preformed (if so, how long)? @ -No Were there social determinants of health that impacted care today? How? (Homelessness, low income, unemployed, alcoholism, drug addiction, transportation, low edu. Level, literacy, decrease access to med. care, senior living, rehab)? @ -No Was there de-escalation of care discussed even if they declined (Discuss DNR or withdrawal of care, Hospice)? DNR status @ -No What co-morbidities impacted this encounter? (DM, HTN, Smoking, COPD, CAD, Cancer, CVA, ARF, Chemo, Hep., AIDS, mental health diagnosis, sleep apnea, morbid obesity)? @ -None Was patient admitted / discharged? Hospital course, mention meds given and route, prescriptions, significant lab abnormalities, going to OR and other pertinent info. @ -78-year-old male presenting with chief complaint of shortness of breath. Complaining of orthopnea. History and physical exam were conducted. Lower extremity edema is noted. Patient is placed on 2 L of oxygen via nasal cannula. BNP 7340 and chest x-ray appears consistent with CHF. Troponin 0.027. BUN 25 and creatinine 1.54. Patient has no history of CHF. He is given 40 mg of Lasix and admitted with cardiology consultation. Patient is agreeable with this plan. I discussed this case with my attending Dr. Whiteside Undiagnosed new problem with uncertain prognosis? @ -No Drug Therapy requiring intensive monitoring for toxicity (Heparin, Nitro, Insulin, Cardizem)? @ -No Were any procedures done? @ -No Diagnosis/symptom? @ -New onset CHF Acute, or Chronic, or Acute on Chronic? @ -Acute Uncomplicated (without systemic symptoms) or Complicated (systemic symptoms)? @ -Complicated Side effects of treatment? @ -No Exacerbation, Progression, or Severe Exacerbation? @ -Exacerbation Poses a threat to life or bodily function? How? (Chest pain, USA, MS, pneumonia, PE, COPD, DKA, ARF, appy, cholecystitis, CVA, Diverticulitis, Homicidal, Suicidal, threat to staff... and all critical care pts) @ -Yes - Lab Data Result diagrams: 06/13/23 00:32 06/13/23 00:32 Lab Results 06/13/23 06/13/23 06/13/23 Range/Units 00:32 00:32 00:32 WBC 7.9 (3.8-10.6) k/uL RBC 4.30 (4.30-5.90) m/uL Hgb 11.6 L (13.0-17.5) gm/dL Hct 35.6 L (39.0-53.0) % MCV 82.7 (80.0-100.0) fL MCH 27.0 (25.0-35.0) pg MCHC 32.6 (31.0-37.0) g/dL RDW 15.3 (11.5-15.5) % Plt Count 162 (150-450) k/uL MPV 7.6 Neutrophils % 64 % Lymphocytes % 22 % Monocytes % 8 % Eosinophils % 3 % Basophils % 0 % Neutrophils # 5.0 (1.3-7.7) k/uL Lymphocytes # 1.7 (1.0-4.8) k/uL Monocytes # 0.6 (0-1.0) k/uL Eosinophils # 0.3 (0-0.7) k/uL Basophils # 0.0 (0-0.2) k/uL PT 11.2 (10.0-12.5) sec INR 1.0 (<1.2) APTT 24.3 (22.0-30.0) sec Sodium 141 (137-145) mmol/L Potassium 3.6 (3.5-5.1) mmol/L Chloride 110 H (98-107) mmol/L Carbon Dioxide 19 L (22-30) mmol/L Anion Gap 12 mmol/L BUN 25 H (9-20) mg/dL Creatinine 1.54 H (0.66-1.25) mg/dL Est GFR (CKD-EPI)AfAm 49 (>60 ml/min/1.73 sqM) Est GFR (CKD-EPI)NonAf 43 (>60 ml/min/1.73 sqM) Glucose 139 H (74-99) mg/dL Plasma Lactic Acid Richard (0.7-2.0) mmol/L Calcium 10.1 (8.4-10.2) mg/dL Total Bilirubin 0.7 (0.2-1.3) mg/dL AST 20 (17-59) U/L ALT 16 (4-49) U/L Alkaline Phosphatase 105 (38-126) U/L Troponin I (0.000-0.034) ng/mL NT-Pro-B Natriuret Pep 7340 pg/mL Total Protein 6.9 (6.3-8.2) g/dL Albumin 3.9 (3.5-5.0) g/dL 06/13/23 06/13/23 Range/Units 00:32 00:32 WBC (3.8-10.6) k/uL RBC (4.30-5.90) m/uL Hgb (13.0-17.5) gm/dL Hct (39.0-53.0) % MCV (80.0-100.0) fL MCH (25.0-35.0) pg MCHC (31.0-37.0) g/dL RDW (11.5-15.5) % Plt Count (150-450) k/uL MPV Neutrophils % % Lymphocytes % % Monocytes % % Eosinophils % % Basophils % % Neutrophils # (1.3-7.7) k/uL Lymphocytes # (1.0-4.8) k/uL Monocytes # (0-1.0) k/uL Eosinophils # (0-0.7) k/uL Basophils # (0-0.2) k/uL PT (10.0-12.5) sec INR (<1.2) APTT (22.0-30.0) sec Sodium (137-145) mmol/L Potassium (3.5-5.1) mmol/L Chloride (98-107) mmol/L Carbon Dioxide (22-30) mmol/L Anion Gap mmol/L BUN (9-20) mg/dL Creatinine (0.66-1.25) mg/dL Est GFR (CKD-EPI)AfAm (>60 ml/min/1.73 sqM) Est GFR (CKD-EPI)NonAf (>60 ml/min/1.73 sqM) Glucose (74-99) mg/dL Plasma Lactic Acid Richard 1.2 (0.7-2.0) mmol/L Calcium (8.4-10.2) mg/dL Total Bilirubin (0.2-1.3) mg/dL AST (17-59) U/L ALT (4-49) U/L Alkaline Phosphatase (38-126) U/L Troponin I 0.027 (0.000-0.034) ng/mL NT-Pro-B Natriuret Pep pg/mL Total Protein (6.3-8.2) g/dL Albumin (3.5-5.0) g/dL Disposition Clinical Impression: New onset of congestive heart failure Disposition: ADMITTED IP TO THIS HOSP Condition: Fair Time of Disposition: 01:45
--- NOTE | 2023-06-13 04:56 | XR ---
EXAM: XR Chest, 2 Views CLINICAL HISTORY: Difficulty breathing TECHNIQUE: Frontal and lateral views of the chest. COMPARISON: 01/04/2023. FINDINGS: Gross cardiomegaly. Diffuse interstitial prominence compatible with CHF. Right basilar probable edema. No definite pleural effusion or pneumothorax. Bones are unchanged. IMPRESSION: Gross cardiomegaly. CHF. Right basilar probable edema.
[2023-06-13] MEDS ORDERED: ACETAMINOPHEN TAB 325 MG TAB PO PRN (06:08)
[2023-06-13] MEDS ORDERED: ONDANSETRON 4 MG/2 ML VIAL IVP PRN (06:08)
[2023-06-13] MEDS: ENOXAPARIN 40 MG/0.4 ML SYRINGE SQ SCH (09:00)
[2023-06-13] MEDS ORDERED: DEXTROSE 50% SYRINGE 50 ML IVP PRN ×2 (09:06)
[2023-06-13 12:21] LABS: Glucose,Whole Blood 124 mg/dL (70-110)
[2023-06-13] MEDS ORDERED: METOPROLOL SUCCINATE (ER) 25 MG TAB.ER.24H PO SCH (12:30)
--- NOTE | 2023-06-13 12:44 | P.HPIM ---
History of Present Illness H&P Date: 06/13/23 Chief Complaint: Shortness of breath * 78-year-old gentleman with past medical history significant for diabetes mellitus, hypertension, coronary artery disease involving LAD status post PCI 04/02, presents to the emergency department with complains of shortness of breath. Patient said symptom has onset has been approximately few days ago with cough, congestion, shortness of breath. Patient went to his primary care physician and was prescribed antibiotics over patient unsure what medication he was taking. Patient states his shortness of breath worsened to the point that he could not lay flat on his back and was noted to have lower extremity edema, patient decided to come to the emergency to seek further medical attention. * He denies associated chest pain, palpitations, nausea, vomiting, diarrhea * Workup obtained in ER included serum chemistry which showed B on and 25 creatinine 1.54, sodium 141 lactate 1.2, N-terminal proBNP 7340, troponin 0.027. Baseline creatinine 1.4 * Chest x-ray obtained in ER shows cardiomegaly, pulmonary edema * EKG obtained in ER shows normal sinus rhythm, no significant ST segment changes * Patient to be admitted to medical floor with consultations to be obtained from cardiology REVIEW OF SYSTEMS: Shortness of breath, orthopnea, CONSTITUTIONAL: No fever, no malaise, no fatigue. HEENT: No recent visual problems or hearing problems. Denied any sore throat. CARDIOVASCULAR: Shortness of breath, orthopnea, PULMONARY:Shortness of breath, orthopnea, GASTROINTESTINAL: No diarrhea, no nausea, no vomiting, no abdominal pain. NEUROLOGICAL: No headaches, no weakness, no numbness. HEMATOLOGICAL: Denies any bleeding or petechiae. GENITOURINARY: Denies any burning micturition, frequency, or urgency. MUSCULOSKELETAL/RHEUMATOLOGICAL: Denies any joint pain, swelling, or any muscle pain. ENDOCRINE: Denies any polyuria or polydipsia. PHYSICAL EXAMINATION: GENERAL: The patient is alert and oriented x3, ill appearance, nasal cannula in place, HEENT: Pupils are round and equally reacting to light. EOMI. CARDIOVASCULAR: S1 and S2 present. No murmurs, rubs, or gallops. PULMONARY: Decreased breath sounds bilaterally ABDOMEN: Soft, nontender, nondistended, normoactive bowel sounds. No palpable organomegaly. MUSCULOSKELETAL: No joint swelling or deformity. EXTREMITIES: Lower extremity edema NEUROLOGICAL: Gross neurological examination did not reveal any focal deficits. SKIN: No rashes. Past Medical History Past Medical History: Diabetes Mellitus, Hyperlipidemia, Hypertension, Sleep Apnea/CPAP/BIPAP Additional Past Medical History / Comment(s): CPAP use. History of Any Multi-Drug Resistant Organisms: None Reported Past Surgical History: Heart Catheterization, Hernia Repair, Joint Replacement Additional Past Surgical History / Comment(s): Knee replacement. Eye surgery. Past Anesthesia/Blood Transfusion Reactions: No Reported Reaction Past Psychological History: No Psychological Hx Reported Smoking Status: Former smoker Past Alcohol Use History: Occasional Past Drug Use History: None Reported - Past Family History Mother Family Medical History: No Reported History Medications and Allergies Home Medications Medication Instructions Recorded Confirmed Type Aspirin [Adult Low Dose Aspirin EC] 81 mg PO DAILY 06/17/20 06/13/23 History Doxazosin Mesylate 8 mg PO BID 06/17/20 06/13/23 History Dutasteride 0.5 mg PO HS 06/17/20 06/13/23 History Enalapril [Vasotec] 20 mg PO BID 06/17/20 06/13/23 History amLODIPine [Norvasc] 5 mg PO DAILY 06/17/20 06/13/23 History sitaGLIPtin PHOS/metFORMIN HCL 1 tab PO BID 06/17/20 06/13/23 History [Janumet 50-500 mg Tablet] Atorvastatin [Lipitor] 40 mg PO HS 06/28/20 06/13/23 History Ticagrelor [Brilinta] 90 mg PO BID #60 tab 03/24/22 06/13/23 Rx LORazepam [Ativan] 2 mg PO DAILY PRN 01/04/23 06/13/23 History Latanoprost [Latanoprost 0.005%] 1 drop BOTH EYES HS 01/04/23 06/13/23 History Olopatadine HCl [Patanol 0.1%] 1 drop BOTH EYES BID 01/04/23 06/13/23 History Azithromycin [Zithromax Z Pack] See Taper PO DIRECTED 06/13/23 06/13/23 History Metoprolol Succinate [Toprol XL] 50 mg PO DAILY 06/13/23 06/13/23 History Allergies Allergy/AdvReac Type Severity Reaction Status Date / Time ibuprofen [From Motrin] Allergy Unknown Verified 06/13/23 00:13 Physical Exam Vitals: Vital Signs Temp Pulse Pulse Resp BP BP Pulse Ox 06/13/23 08:18 95 06/13/23 08:00 97.4 F L 61 17 144/73 95 06/13/23 06:00 63 14 174/101 94 L 06/13/23 05:00 57 L 16 155/87 96 06/13/23 04:00 63 16 161/91 95 06/13/23 03:00 61 14 164/89 94 L 06/13/23 02:00 64 16 157/99 94 L 06/13/23 01:32 64 18 157/99 94 L 06/13/23 00:10 98.7 F 77 22 165/98 95 Intake and Output 06/12/23 06/13/23 06/13/23 22:59 06:59 14:59 Other: Weight 88.451 kg Results CBC & Chem 7: 06/13/23 00:32 06/13/23 00:32 Labs: Abnormal Lab Results - Last 24 Hours (Table) 06/13/23 06/13/23 Range/Units 00:32 00:32 Hgb 11.6 L (13.0-17.5) gm/dL Hct 35.6 L (39.0-53.0) % Chloride 110 H (98-107) mmol/L Carbon Dioxide 19 L (22-30) mmol/L BUN 25 H (9-20) mg/dL Creatinine 1.54 H (0.66-1.25) mg/dL Glucose 139 H (74-99) mg/dL Assessment and Plan Assessment: Assessment and plan * Acute onset congestive heart failure * Acute hypoxia secondary to congestive heart failure/pulmonary edema * History of coronary artery disease with PCI * Diabetes mellitus * Hyperlipidemia * Hypertension * In regards to congestive heart failure, echocardiogram ordered, continue patient on IV Lasix, cardiology consulted, serial troponins ordered, * History of coronary artery disease we'll review home medications reviewed and reconciled, appreciate input from cardiology, continue to monitor intake and output continue oxygen supplementation * In regards to diabetes mellitus, continue Accu-Cheks before meals at bedtime correctional insulin while inpatient oral hypoglycemic agent on hold while inpatient * In regards to dyslipidemia continue Lipitor * In regards to history of hypertension will review her reconsult home medication * CODE STATUS full code Time with Patient: Greater than 30
[2023-06-13] MEDS ORDERED: TICAGRELOR 90 MG TAB PO SCH (12:45)
[2023-06-13] MEDS: INSULIN ASPART (NovoLOG) 100 UNIT/ML VIAL SQ SCH ×3 (12:46→20:58)
[2023-06-13] MEDS ORDERED: NON FORMULARY DRUG (Enalapril 20 MG Tab) PO SCH (13:00)
[2023-06-13] MEDS: ATORVASTATIN 40 MG TAB PO SCH (13:59)
[2023-06-13] MEDS: DOXAZOSIN 4 MG TAB PO SCH ×2 (13:59→20:59)
[2023-06-13] MEDS: ASPIRIN 81 MG PO SCH (14:00)
[2023-06-13] MEDS: METOPROLOL SUCCINATE (ER) 50 MG TAB.ER.24H PO SCH ×2 (14:00→19:25)
[2023-06-13] MEDS: LOSARTAN 25 MG TAB PO SCH (14:00)
[2023-06-13] MEDS: KETOTIFEN 0.025% OPHTH DROPS 5 ML BTL BOTH EYES SCH ×2 (14:03→21:01)
[2023-06-13 17:00] LABS: Glucose,Whole Blood 194 mg/dL (70-110)
[2023-06-13] MEDS: FUROSEMIDE 10 MG/ML 4 ML VIAL IV SCH (17:05)
--- NOTE | 2023-06-13 19:07 | P.CRDCN ---
History of Present Illness Consult date: 06/13/23 History of present illness: HISTORY OF PRESENTING ILLNESS 78-year-old with PMH of type 2 diabetes, hypertension, CAD status post PCI to LAD in March [address] Hair. He presented to the hospital with worsening shortness of breath for last 4-5 days along with significant history of orthopnea and paroxysmal nocturnal dyspnea. Lastly patient went to his primary care physician and he was treated for an cardiac or pneumonia with oral antibiotics. But for last 2-3 days he has been feeling more short of breath and because of concerns of orthopnea he presented to the ER. On admission he blood pressure 155/87, pulse 63, hemoglobin 11, WBC 7, sodium 146, potassium 3.8, BUN 25, creatinine 1.5. BNP 7000 troponin was negative. Baseline creatinine is 1.4 Chest x-ray showed cardiac megaly with moderate pulmonary congestion By the time of evaluation patient already received IV Lasix and reports symptomatic improvement with symptoms of shortness of breath and lower extremity edema REVIEW OF SYSTEMS 14 point review of system is negative except what is mentioned above in HPI. PHYSICAL EXAMINATION Vital signs reviewed. Head: Normocephalic. Eyes: Sclerae nonicteric. Neck: Brisk carotid upstroke, no jugular venous distention. Lungs: Mild crackles. Heart: Regular rate and rhythm, S1-S2, no S3, no murmur or rub. Abdomen: Soft nontender, positive bowel sounds no organomegaly. Extremities: No edema, intact distal pulses. Neuro: Alert, oritented, no focal deficits ASSESSMENT Acute congestive heart failure exacerbation, EF unknown at this time Acute hypoxic respiratory failure CAD status post PCI to LAD March 2022 Essential hypertension Dyslipidemia Obesity Type II Diabetes PLAN Start IV Lasix 40 mg twice a day. Reevaluate tomorrow the fluid status. Possibly transition to by mouth tomorrow Consider adding Aldactone tomorrow if kidney function is stable Start losartan 25 mg daily Increase metoprolol to 50 mg daily Aspirin, atorvastatin Continue amlodipine Discontinue midodrine as patient is completed one yr of DAPT Obtain echo Past Medical History Past Medical History: Diabetes Mellitus, Hyperlipidemia, Hypertension, Sleep Apnea/CPAP/BIPAP Additional Past Medical History / Comment(s): CPAP use. History of Any Multi-Drug Resistant Organisms: None Reported Past Surgical History: Heart Catheterization, Hernia Repair, Joint Replacement Additional Past Surgical History / Comment(s): Knee replacement. Eye surgery. Past Anesthesia/Blood Transfusion Reactions: No Reported Reaction Past Psychological History: No Psychological Hx Reported Smoking Status: Former smoker Past Alcohol Use History: Occasional Past Drug Use History: None Reported - Past Family History Mother Family Medical History: No Reported History Medications and Allergies Home Medications Medication Instructions Recorded Confirmed Type Aspirin [Adult Low Dose Aspirin EC] 81 mg PO DAILY 06/17/20 06/13/23 History Doxazosin Mesylate 8 mg PO BID 06/17/20 06/13/23 History Dutasteride 0.5 mg PO HS 06/17/20 06/13/23 History Enalapril [Vasotec] 20 mg PO BID 06/17/20 06/13/23 History amLODIPine [Norvasc] 5 mg PO DAILY 06/17/20 06/13/23 History sitaGLIPtin PHOS/metFORMIN HCL 1 tab PO BID 06/17/20 06/13/23 History [Janumet 50-500 mg Tablet] Atorvastatin [Lipitor] 40 mg PO HS 06/28/20 06/13/23 History Ticagrelor [Brilinta] 90 mg PO BID #60 tab 03/24/22 06/13/23 Rx LORazepam [Ativan] 2 mg PO DAILY PRN 01/04/23 06/13/23 History Latanoprost [Latanoprost 0.005%] 1 drop BOTH EYES HS 01/04/23 06/13/23 History Olopatadine HCl [Patanol 0.1%] 1 drop BOTH EYES BID 01/04/23 06/13/23 History Azithromycin [Zithromax Z Pack] See Taper PO DIRECTED 06/13/23 06/13/23 History Metoprolol Succinate [Toprol XL] 50 mg PO DAILY 06/13/23 06/13/23 History Allergies Allergy/AdvReac Type Severity Reaction Status Date / Time ibuprofen [From Motrin] Allergy Unknown Verified 06/13/23 12:47 Physical Exam Vitals: Vital Signs Temp Pulse Pulse Resp BP BP Pulse Ox 06/13/23 16:00 97.6 F 57 L 18 146/86 99 06/13/23 12:00 98.0 F 60 17 144/88 95 06/13/23 08:18 95 06/13/23 08:00 97.4 F L 61 17 144/73 95 06/13/23 06:00 63 14 174/101 94 L 06/13/23 05:00 57 L 16 155/87 96 06/13/23 04:00 63 16 161/91 95 06/13/23 03:00 61 14 164/89 94 L 06/13/23 02:00 64 16 157/99 94 L 06/13/23 01:32 64 18 157/99 94 L 06/13/23 00:10 98.7 F 77 22 165/98 95 Intake and Output 06/13/23 06/13/23 06/13/23 06:59 14:59 22:59 Intake Total 500 Balance 500 Intake: Oral 500 Other: Voiding Method Toilet # Voids 2 3 Weight 88.451 kg Results 06/13/23 00:32 06/13/23 00:32 Cardiac Enzymes 06/13/23 06/13/23 06/13/23 Range/Units 00:32 00:32 13:53 AST 20 (17-59) U/L Troponin I 0.027 0.031 (0.000-0.034) ng/mL 06/13/23 Range/Units 17:56 AST (17-59) U/L Troponin I 0.032 (0.000-0.034) ng/mL Coagulation 06/13/23 Range/Units 00:32 PT 11.2 (10.0-12.5) sec APTT 24.3 (22.0-30.0) sec CBC 06/13/23 Range/Units 00:32 WBC 7.9 (3.8-10.6) k/uL RBC 4.30 (4.30-5.90) m/uL Hgb 11.6 L (13.0-17.5) gm/dL Hct 35.6 L (39.0-53.0) % Plt Count 162 (150-450) k/uL Comprehensive Metabolic Panel 06/13/23 Range/Units 00:32 Sodium 141 (137-145) mmol/L Potassium 3.6 (3.5-5.1) mmol/L Chloride 110 H (98-107) mmol/L Carbon Dioxide 19 L (22-30) mmol/L BUN 25 H (9-20) mg/dL Creatinine 1.54 H (0.66-1.25) mg/dL Glucose 139 H (74-99) mg/dL Calcium 10.1 (8.4-10.2) mg/dL AST 20 (17-59) U/L ALT 16 (4-49) U/L Alkaline Phosphatase 105 (38-126) U/L Total Protein 6.9 (6.3-8.2) g/dL Albumin 3.9 (3.5-5.0) g/dL Current Medications Generic Name Dose Route Start Last Admin Trade Name Freq PRN Reason Stop Dose Admin Acetaminophen 650 mg 06/13/23 06:08 Acetaminophen Tab 325 Mg Tab PO Q6HR PRN Fever and/ or Pain Amlodipine Besylate 5 mg 06/14/23 09:00 Amlodipine 5 Mg Tab PO DAILY PARDEEP Aspirin 81 mg 06/13/23 12:30 06/13/23 14:00 Aspirin 81 Mg PO 81 mg DAILY PARDEEP Administration Atorvastatin Calcium 40 mg 06/13/23 12:30 06/13/23 13:59 Atorvastatin 40 Mg Tab PO 40 mg DAILY PARDEEP Administration Dextrose/Water 25 ml 06/13/23 09:06 Dextrose 50% Syringe 50 Ml IVP PER PROTOCOL PRN Hypoglycemia Protocol Dextrose/Water 50 ml 06/13/23 09:06 Dextrose 50% Syringe 50 Ml IVP PER PROTOCOL PRN Hypoglycemia Protocol Doxazosin Mesylate 8 mg 06/13/23 12:45 06/13/23 13:59 Doxazosin 4 Mg Tab PO 8 mg BID PARDEEP Administration Enoxaparin Sodium 40 mg 06/13/23 09:00 06/13/23 09:00 Enoxaparin 40 Mg/0.4 Ml Syringe SQ 40 mg DAILY PARDEEP Administration Finasteride 5 mg 06/13/23 21:00 Finasteride 5 Mg Tab PO HS PARDEEP Furosemide 40 mg 06/13/23 18:00 06/13/23 17:05 Furosemide 10 Mg/Ml 4 Ml Vial IV 40 mg Q12H PARDEEP Administration Insulin Aspart 0 unit 06/13/23 12:30 06/13/23 17:05 Insulin Aspart (Novolog) 100 Unit/Ml Vial SQ 1 unit ACHS PARDEEP Administration Protocol Ketotifen Fumarate 1 drops 06/13/23 12:45 06/13/23 14:03 Ketotifen 0.025% Ophth Drops 5 Ml Btl BOTH EYES 1 drops BID PARDEEP Administration Latanoprost 1 drops 06/13/23 21:00 Latanoprost 0.005% Ophth Drops 2.5 Ml Btl BOTH EYES HS PARDEEP Lorazepam 2 mg 06/13/23 12:44 Lorazepam 1 Mg Tab PO DAILY PRN Anxiety Losartan Potassium 25 mg 06/13/23 12:30 06/13/23 14:00 Losartan 25 Mg Tab PO 25 mg DAILY PARDEEP Administration Metoprolol Succinate 50 mg 06/13/23 13:00 06/13/23 14:00 Metoprolol Succinate (Er) 50 Mg Tab.Er.24h PO 50 mg DAILY PARDEEP Administration Naloxone HCl 0.2 mg 06/13/23 01:43 Naloxone 0.4 Mg/Ml 1 Ml Vial IV Q2M PRN Opioid Reversal Ondansetron HCl 4 mg 06/13/23 06:08 Ondansetron 4 Mg/2 Ml Vial IVP Q6HR PRN Nausea And Vomiting Intake and Output 06/13/23 06/13/23 06/13/23 06:59 14:59 22:59 Intake Total 500 Balance 500 Intake: Oral 500 Other: Voiding Method Toilet # Voids 2 3 Weight 88.451 kg 06/13/23 00:32 06/13/23 00:32
[2023-06-13 20:58] LABS: Glucose,Whole Blood 93 mg/dL (70-110)
[2023-06-13] MEDS: FINASTERIDE 5 MG TAB PO SCH (20:59)
[2023-06-13] MEDS: LATANOPROST 0.005% OPHTH DROPS 2.5 ML BTL BOTH EYES SCH (21:01)
[2023-06-13] MEDS: LORazepam 1 MG TAB PO PRN (21:43)
[2023-06-14] MEDS: FUROSEMIDE 10 MG/ML 4 ML VIAL IV SCH (05:44)
[2023-06-14] MEDS: INSULIN ASPART (NovoLOG) 100 UNIT/ML VIAL SQ SCH ×4 (05:44→20:21)
[2023-06-14 05:47] LABS: Glucose,Whole Blood 116 mg/dL (70-110)
[2023-06-14 07:47] LABS: HCT 36.9 % (39.0-53.0); HGB 12.1 gm/dL (13.0-17.5); Hypochromasia Slight; MCH 27.6 pg (25.0-35.0); MCHC 32.6 g/dL (31.0-37.0); MCV 84.5 fL (80.0-100.0); Mean Platelet Volume 7.6; Platelet Count 167 k/uL (150-450); RBC 4.37 m/uL (4.30-5.90); RDW 15.5 % (11.5-15.5); WBC 6.2 k/uL (3.8-10.6)
[2023-06-14 08:12] LABS: African American GFR (CKD) 53 (>60 ml/min/1.73 sqM); Anion Gap 15 mmol/L; Blood Urea Nitrogen 25 mg/dL (9-20); Calcium 9.8 mg/dL (8.4-10.2); Carbon Dioxide 22 mmol/L (22-30); Chloride 105 mmol/L (98-107); Glucose 113 mg/dL (74-99); Non-African American GFR(CKD) 45 (>60 ml/min/1.73 sqM); Potassium 3.5 mmol/L (3.5-5.1); Sodium 142 mmol/L (137-145)
[2023-06-14 08:15] LABS: NT-Pro-B-Type Natriuretic Pept 5740 pg/mL
[2023-06-14] MEDS: FINASTERIDE 5 MG TAB PO SCH (08:41)
[2023-06-14] MEDS: ATORVASTATIN 40 MG TAB PO SCH (08:41)
[2023-06-14] MEDS: ASPIRIN 81 MG PO SCH (08:41)
[2023-06-14] MEDS: METOPROLOL SUCCINATE (ER) 50 MG TAB.ER.24H PO SCH (08:41)
[2023-06-14] MEDS: amLODIPine 5 MG TAB PO SCH (08:42)
[2023-06-14] MEDS: LOSARTAN 25 MG TAB PO SCH (08:42)
[2023-06-14] MEDS: DOXAZOSIN 4 MG TAB PO SCH ×2 (08:42→20:55)
[2023-06-14] MEDS: KETOTIFEN 0.025% OPHTH DROPS 5 ML BTL BOTH EYES SCH ×2 (08:43→20:55)
[2023-06-14] MEDS: ENOXAPARIN 40 MG/0.4 ML SYRINGE SQ SCH (08:44)
--- NOTE | 2023-06-14 08:44 | P.PN ---
Subjective Progress Note Date: 06/14/23 Principal diagnosis: heart failure This is a 78-year-old male who presented to the emergency department with complaints of shortness of breath that has been worsening for the last few days. Patient states he is unable to lie flat on his back because of worsening symptoms. He does admit lower extremity swelling. She denies any chest pain or palpitations. Chest x-ray in the ER showed cardiomegaly and pulmonary edema. BNP was 7000. Cardiology was consulted and started patient on IV Lasix 40 mg twice a day. He was also started on losartan and metoprolol was increased to 50 mg daily. Echo has been ordered. Patient is seen this morning in the ER sitting on the stretcher. He reports his breathing is a lot better and is feeling improved. He is tolerating diet. Objective - Vital Signs Vital signs: Vital Signs Temp 97.9 F 06/14/23 04:00 Pulse 56 L 06/14/23 04:00 Resp 16 06/14/23 04:00 BP 151/86 06/14/23 04:00 Pulse Ox 95 06/14/23 04:00 FiO2 Intake & Output 06/13/23 06/14/23 06/14/23 18:59 06:59 18:59 Intake Total 500 Balance 500 Intake: Oral 500 Other: Voiding Method Toilet Toilet # Voids 3 2 - Constitutional General appearance: Present: cooperative, no acute distress - EENT Eyes: Present: PERRLA - Neck Neck: Present: normal ROM. Absent: lymphadenopathy, rigidity - Respiratory Respiratory: bilateral: CTA - Cardiovascular Rhythm: regular Heart sounds: normal: S1, S2 - Gastrointestinal General gastrointestinal: Present: soft. Absent: tenderness - Integumentary Integumentary: Present: normal, normal turgor - Psychiatric Psychiatric: Present: A&O x's 3, appropriate affect, intact judgment & insight - Labs CBC & Chem 7: 06/14/23 06:32 06/14/23 06:32 Labs: Abnormal Lab Results - Last 24 Hours (Table) 06/13/23 06/13/23 06/14/23 Range/Units 12:20 16:58 05:43 Hgb (13.0-17.5) gm/dL Hct (39.0-53.0) % BUN (9-20) mg/dL Creatinine (0.66-1.25) mg/dL Glucose (74-99) mg/dL POC Glucose (mg/dL) 124 H 194 H 116 H (70-110) mg/dL 06/14/23 06/14/23 Range/Units 06:32 06:32 Hgb 12.1 L (13.0-17.5) gm/dL Hct 36.9 L (39.0-53.0) % BUN 25 H (9-20) mg/dL Creatinine 1.46 H (0.66-1.25) mg/dL Glucose 113 H (74-99) mg/dL POC Glucose (mg/dL) (70-110) mg/dL Assessment and Plan (1) New onset of congestive heart failure Current Visit: Yes Status: Acute Code(s): I50.9 - HEART FAILURE, UNSPECIFIED SNOMED Code(s): 99061103 (2) Hypoxia Current Visit: Yes Status: Acute Code(s): R09.02 - HYPOXEMIA SNOMED Code(s): 436979914 (3) Hypertension Current Visit: Yes Status: Acute Code(s): I10 - ESSENTIAL (PRIMARY) HYPERTENSION SNOMED Code(s): 92387776 (4) Diabetes Current Visit: Yes Status: Acute Code(s): E11.9 - TYPE 2 DIABETES MELLITUS WITHOUT COMPLICATIONS SNOMED Code(s): 79659863 (5) Hyperlipemia Current Visit: Yes Status: Acute Code(s): E78.5 - HYPERLIPIDEMIA, UNSPECIFIED SNOMED Code(s): 32444345 (6) History of CAD (coronary artery disease) Current Visit: Yes Status: Acute Code(s): Z86.79 - PERSONAL HISTORY OF OTHER DISEASES OF THE CIRCULATORY SYSTEM SNOMED Code(s): 127800011 Plan: Check CBC and CMP in the morning. Await echo results. Appreciate cardiology input. Patient seen and evaluated by nurse practitioner, physician in agreement with plan
--- NOTE | 2023-06-14 12:27 | P.PN ---
Subjective Progress Note Date: 06/14/23 HISTORY OF PRESENTING ILLNESS 78-year-old with PMH of type 2 diabetes, hypertension, CAD status post PCI to LAD in March [address] Hair. He presented to the hospital with worsening shortness of breath for last 4-5 days along with significant history of orthopnea and paroxysmal nocturnal dyspnea. Lastly patient went to his primary care physician and he was treated for an cardiac or pneumonia with oral antibiotics. But for last 2-3 days he has been feeling more short of breath and because of concerns of orthopnea he presented to the ER. On admission he blood pressure 155/87, pulse 63, hemoglobin 11, WBC 7, sodium 146, potassium 3.8, BUN 25, creatinine 1.5. BNP 7000 troponin was negative. Baseline creatinine is 1.4 Chest x-ray showed cardiac megaly with moderate pulmonary congestion By the time of evaluation patient already received IV Lasix and reports symp tomatic improvement with symptoms of shortness of breath and lower extremity edema 06/14 Seen today in the emergency center as follow-up. He states he is feeling better today with shortness of breath. He states he recently had the flu about 10 days ago. No chest pain or tightness. He states he does not have chronic shortness of breath. Echocardiogram is pending. Blood pressure 144/79, heart rate in the 50s and 60s, pulse ox 96% on 2 L. Hemoglobin 12.1, BUN 25, creatinine 1.46, potassium 4.5. Patient has been maintained on IV Lasix 40 mg every 12 hours. No DEBBIE's and no weights recorded. PHYSICAL EXAMINATION Vital signs reviewed. Head: Normocephalic. Eyes: Sclerae nonicteric. Neck: Brisk carotid upstroke, no jugular venous distention. Lungs: Mild crackles. Heart: Regular rate and rhythm, S1-S2, no S3, no murmur or rub. Abdomen: Soft nontender, positive bowel sounds no organomegaly. Extremities: No edema, intact distal pulses. Neuro: Alert, oritented, no focal deficits ASSESSMENT Acute congestive heart failure exacerbation, EF unknown at this time Acute hypoxic respiratory failure CAD status post PCI to LAD March 2022 Essential hypertension Dyslipidemia Obesity Type II Diabetes PLAN Transition IV Lasix to oral 40 mg daily. Consider adding Aldactone tomorrow if kidney function is stable Continue losartan 25 mg daily Continue increased dose of metoprolol to 50 mg daily Aspirin, atorvastatin Continue amlodipine Discontinue midodrine as patient is completed one yr of DAPT Obtain echo Nurse practitioner note has been reviewed, I agree with the documented findings and plan of care. Patient was seen and examined. Objective - Vital Signs Vital signs: Vital Signs Temp 98.1 F 06/14/23 08:50 Pulse 64 06/14/23 08:50 Resp 18 06/14/23 08:50 BP 144/79 06/14/23 08:50 Pulse Ox 96 06/14/23 08:59 FiO2 Intake & Output 06/13/23 06/14/23 06/14/23 18:59 06:59 18:59 Intake Total 500 Balance 500 Intake: Oral 500 Other: Voiding Method Toilet Toilet # Voids 3 2 - Labs CBC & Chem 7: 06/14/23 06:32 06/14/23 06:32 Labs: Abnormal Lab Results - Last 24 Hours (Table) 06/13/23 06/13/23 06/14/23 Range/Units 12:20 16:58 05:43 Hgb (13.0-17.5) gm/dL Hct (39.0-53.0) % BUN (9-20) mg/dL Creatinine (0.66-1.25) mg/dL Glucose (74-99) mg/dL POC Glucose (mg/dL) 124 H 194 H 116 H (70-110) mg/dL Hemoglobin A1c (<=6.0) % 06/14/23 06/14/23 06/14/23 Range/Units 06:32 06:32 06:32 Hgb 12.1 L (13.0-17.5) gm/dL Hct 36.9 L (39.0-53.0) % BUN 25 H (9-20) mg/dL Creatinine 1.46 H (0.66-1.25) mg/dL Glucose 113 H (74-99) mg/dL POC Glucose (mg/dL) (70-110) mg/dL Hemoglobin A1c 6.8 H (<=6.0) %
[2023-06-14 12:36] LABS: Glucose,Whole Blood 192 mg/dL (70-110)
[2023-06-14 16:51] LABS: Glucose,Whole Blood 185 mg/dL (70-110)
[2023-06-14 20:08] LABS: Glucose,Whole Blood 119 mg/dL (70-110)
[2023-06-14] MEDS: LATANOPROST 0.005% OPHTH DROPS 2.5 ML BTL BOTH EYES SCH (20:55)
[2023-06-14] MEDS: LORazepam 1 MG TAB PO PRN (20:57)
[2023-06-15 06:08] LABS: Glucose,Whole Blood 124 mg/dL (70-110)
[2023-06-15] MEDS: INSULIN ASPART (NovoLOG) 100 UNIT/ML VIAL SQ SCH ×4 (06:20→20:28)
--- NOTE | 2023-06-15 08:26 | P.PN ---
Subjective Progress Note Date: 06/15/23 Principal diagnosis: CHF new onset The patient is a 70-year-old white male who is essentially admitted for new onset congestive heart failure history of CAD and recent herniorrhaphy repair. The patient has had significant diuresis and feels much better. Echocardiogram is pending. Appreciate cardiology input. No voiding difficulties she states she is able to ambulate without significant dyspnea. Tolerating diet no voiding difficulties Objective - Vital Signs Vital signs: Vital Signs Temp 97.6 F 06/14/23 19:28 Pulse 57 L 06/15/23 04:00 Resp 16 06/15/23 04:00 BP 150/76 06/15/23 04:00 Pulse Ox 97 06/15/23 04:00 FiO2 Intake & Output 06/14/23 06/15/23 06/15/23 18:59 06:59 18:59 Weight 88.451 kg Other: Voiding Method Toilet - Constitutional General appearance: Present: average body habitus, cooperative - EENT Eyes: Absent: abnormal pupil - Neck Neck: Absent: lymphadenopathy - Respiratory Respiratory: bilateral: diminished - Cardiovascular Rhythm: regular Heart sounds: normal: S1, S2 Abnormal Heart Sounds: Absent: S3 Gallop - Gastrointestinal General gastrointestinal: Present: soft. Absent: tenderness - Integumentary Integumentary: Present: normal turgor. Absent: cellulitis - Neurologic Neurologic: Present: CNII-XII intact - Labs CBC & Chem 7: 06/14/23 06:32 06/14/23 06:32 Labs: Abnormal Lab Results - Last 24 Hours (Table) 06/14/23 06/14/23 06/14/23 Range/Units 06:32 12:33 16:50 POC Glucose (mg/dL) 192 H 185 H (70-110) mg/dL Hemoglobin A1c 6.8 H (<=6.0) % 06/14/23 06/15/23 Range/Units 20:07 06:06 POC Glucose (mg/dL) 119 H 124 H (70-110) mg/dL Hemoglobin A1c (<=6.0) % Assessment and Plan (1) Diabetes Current Visit: Yes Status: Acute Code(s): E11.9 - TYPE 2 DIABETES MELLITUS WITHOUT COMPLICATIONS SNOMED Code(s): 59943298 (2) History of CAD (coronary artery disease) Current Visit: Yes Status: Acute Code(s): Z86.79 - PERSONAL HISTORY OF OTHER DISEASES OF THE CIRCULATORY SYSTEM SNOMED Code(s): 630986979 (3) Hyperlipemia Current Visit: Yes Status: Acute Code(s): E78.5 - HYPERLIPIDEMIA, U NSPECIFIED SNOMED Code(s): 05307052 (4) Hypertension Current Visit: Yes Status: Acute Code(s): I10 - ESSENTIAL (PRIMARY) HYPERTENSION SNOMED Code(s): 17919166 (5) New onset of congestive heart failure Current Visit: Yes Status: Acute Code(s): I50.9 - HEART FAILURE, UNSPECIFIED SNOMED Code(s): 30058588 Plan: Transitioned to oral Lasix. Anticipate discharge in next 24 hours however echocardiogram still pending. Appreciate cardiology input. Diabetes stable. See orders otherwise
[2023-06-15] MEDS ORDERED: FUROSEMIDE 40 MG TAB PO SCH (09:00)
[2023-06-15] MEDS: DOXAZOSIN 4 MG TAB PO SCH (09:48)
[2023-06-15] MEDS: ASPIRIN 81 MG PO SCH (09:48)
[2023-06-15] MEDS: ATORVASTATIN 40 MG TAB PO SCH (09:48)
[2023-06-15] MEDS: METOPROLOL SUCCINATE (ER) 50 MG TAB.ER.24H PO SCH (09:48)
[2023-06-15] MEDS: LOSARTAN 25 MG TAB PO SCH (09:48)
[2023-06-15] MEDS: amLODIPine 5 MG TAB PO SCH (09:48)
[2023-06-15] MEDS: KETOTIFEN 0.025% OPHTH DROPS 5 ML BTL BOTH EYES SCH ×2 (09:49→20:43)
--- NOTE | 2023-06-15 10:06 | CA ---
Transthoracic Echo Report Name: Roque Vasquez Age: 78 Gender: M : 1945 Exam Date: 06/14/2023 16:04 Exam Location: [facility] Ht (in): 67 Wt (lb): 195 Ordering Physician: Colton Gutierrez MD Attending/Referring Phys: [employer]r Obed Torres Procedure CPT: Indications: Heart failure Cardiac Hx: Technical Quality: Fair Contrast 1: Total Dose (mL): Contrast 2: Total Dose (mL): MEASUREMENTS (Male / Female) Normal Values 2D ECHO LV Diastolic Diameter PLAX 6.3 cm 4.2 - 5.9 / 3.9 - 5.3 cm LV Systolic Diameter PLAX 5.6 cm IVS Diastolic Thickness 1.5 cm 0.6 - 1.0 / 0.6 - 0.9 cm LVPW Diastolic Thickness 1.1 cm 0.6 - 1.0 / 0.6 - 0.9 cm LV Relative Wall Thickness 0.4 RV Internal Dim ED PLAX 2.9 cm LVOT Diameter 2.3 cm Aortic Root Diameter 3.7 cm LA Systolic Diameter LX 3.7 cm 3.0 - 4.0 / 2.7 - 3.8 cm LV Diastolic Volume MOD BP 139.5 cm??? 67 - 155 / 56 - 104 cm??? LV Systolic Volume MOD BP 97.3 cm??? - 58 / 19 - 49 cm??? LV Ejection Fraction MOD BP 30.3 % >= 55 % LV Cardiac Index MOD BP 1263.4 cm???/min???m??? LV Diastolic Volume MOD 4C 157.8 cm??? LV Systolic Volume MOD 4C 94.5 cm??? LV Ejection Fraction MOD 4C 40.2 % LV Cardiac Index MOD 4C 1897.1 cm???/min???m??? LV Diastolic Length 4C 8.9 cm LV Systolic Length 4C 7.6 cm LV Diastolic Volume MOD 2C 118.0 cm??? LV Systolic Volume MOD 2C 91.0 cm??? LV Ejection Fraction MOD 2C 22.9 % LV Cardiac Index MOD 2C 808.9 cm???/min???m??? LV Diastolic Length 2C 9.3 cm LV Systolic Length 2C 8.4 cm LA Volume 81.1 cm??? 18 - 58 / 22 - 52 cm??? LA Volume Index 39.1 cm???/m??? 16 - 28 cm???/m??? Ascending Aorta Diameter 3.3 cm DOPPLER AV Peak Velocity 150.3 cm/s AV Peak Gradient 9.0 mmHg AI Peak Velocity 249.3 cm/s AI Peak Gradient 24.9 mmHg AI Pressure Half Time 430.9 ms LVOT Peak Velocity 77.0 cm/s LVOT Peak Gradient 2.4 mmHg LVOT Velocity Time Integral 17.3 cm LVOT Stroke Volume 74.4 cm??? LVOT Stroke Volume Index 37.2 ml/m??? LVOT Cardiac Index 2227.5 cm???/min???m??? AV Area Cont Eq pk 2.2 cm??? MV Peak Velocity 110.1 cm/s MV Peak Gradient 4.9 mmHg MV Mean Velocity 53.8 cm/s MV Mean Gradient 1.4 mmHg MV Velocity Time Integral 42.2 cm MR Peak Velocity 498.3 cm/s MR Peak Gradient 99.3 mmHg Mitral E Point Velocity 102.0 cm/s Mitral A Point Velocity 66.4 cm/s Mitral E to A Ratio 1.5 MV Deceleration Time 220.6 ms MV E' Velocity 3.4 cm/s Mitral E to MV E' Ratio 29.7 TR Peak Velocity 306.5 cm/s TR Peak Gradient 37.6 mmHg Right Ventricular Systolic Press 42.6 mmHg PV Peak Velocity 95.8 cm/s PV Peak Gradient 3.7 mmHg FINDINGS Left Ventricle Mid to moderate LV dilitation. Normal Wall thickness. Left ventricular ejection fraction is estimated at 35-40 %. Right Ventricle Normal right ventricular size. Right Atrium Mild right atrial dilatation. Left Atrium Left atrial dilatation. LA volume index= 41ml/m2 Mitral Valve Structurally normal mitral valve. Moderate MR. Aortic Valve Trileaflet aortic valve. Mild AV calcification/sclerosis. Tricuspid Valve Structurally normal tricuspid valve. Mild to moderate TR. Pulmonic Valve Structurally normal pulmonic valve. Mild to moderate PI. Pericardium Mild to moderate posterior pericardial effusion. Moderate anterior pericardial effusion. Aorta Normal size aortic root and proximal ascending aorta. CONCLUSIONS Impaired LV systolic function. The EF is 35-40%. Dilated LV. Moderate mitral regurgitation with a central jet Aortic sclerosis [id number] tricuspid regurgitation and pulmonic regurgitation Previewed by: Dr. Chris Marie MD (Electronically Signed) Final Date: 15 June 2023 10:05
[2023-06-15 10:18] LABS: HCT 35.5 % (39.0-53.0); HGB 11.4 gm/dL (13.0-17.5); Hypochromasia Slight; MCH 27.1 pg (25.0-35.0); MCHC 32.1 g/dL (31.0-37.0); MCV 84.5 fL (80.0-100.0); Mean Platelet Volume 7.7; Platelet Count 160 k/uL (150-450); RDW 15.3 % (11.5-15.5); WBC 6.6 k/uL (3.8-10.6)
[2023-06-15 10:45] LABS: ALT 15 U/L (4-49); AST 20 U/L (17-59); African American GFR (CKD) 55 (>60 ml/min/1.73 sqM); Albumin 3.5 g/dL (3.5-5.0); Alkaline Phosphatase 87 U/L (38-126); Anion Gap 10 mmol/L; Blood Urea Nitrogen 23 mg/dL (9-20); Calcium 9.8 mg/dL (8.4-10.2); Carbon Dioxide 27 mmol/L (22-30); Chloride 103 mmol/L (98-107); Glucose 171 mg/dL (74-99); Non-African American GFR(CKD) 47 (>60 ml/min/1.73 sqM); Potassium 3.5 mmol/L (3.5-5.1); Sodium 140 mmol/L (137-145); Total Bilirubin 0.7 mg/dL (0.2-1.3); Total Protein 6.3 g/dL (6.3-8.2)
[2023-06-15] MEDS ORDERED: LOSARTAN 25 MG TAB PO STA (10:53)
[2023-06-15 11:38] LABS: Glucose,Whole Blood 138 mg/dL (70-110)
[2023-06-15] MEDS: DAPAGLIFLOZIN PROPANEDIOL 10 MG TABLET PO SCH (12:12)
[2023-06-15 12:16] VITALS: BMI 30.5
[2023-06-15] MEDS: ENOXAPARIN 40 MG/0.4 ML SYRINGE SQ SCH (12:41)
--- NOTE | 2023-06-15 14:56 | P.PN ---
Subjective Progress Note Date: 06/15/23 HISTORY OF PRESENTING ILLNESS 78-year-old with PMH of type 2 diabetes, hypertension, CAD status post PCI to LAD in March [address] Hair. He presented to the hospital with worsening shortness of breath for last 4-5 days along with significant history of orthopnea and paroxysmal nocturnal dyspnea. Lastly patient went to his primary care physician and he was treated for an cardiac or pneumonia with oral antibiotics. But for last 2-3 days he has been feeling more short of breath and because of concerns of orthopnea he presented to the ER. On admission he blood pressure 155/87, pulse 63, hemoglobin 11, WBC 7, sodium 146, potassium 3.8, BUN 25, creatinine 1.5. BNP 7000 troponin was negative. Baseline creatinine is 1.4 Chest x-ray showed cardiac megaly with moderate pulmonary congestion By the time of evaluation patient already received IV Lasix and reports symp tomatic improvement with symptoms of shortness of breath and lower extremity edema 06/14 Seen today in the emergency center as follow-up. He states he is feeling better today with shortness of breath. He states he recently had the flu about 10 days ago. No chest pain or tightness. He states he does not have chronic shortness of breath. Echocardiogram is pending. Blood pressure 144/79, heart rate in the 50s and 60s, pulse ox 96% on 2 L. Hemoglobin 12.1, BUN 25, creatinine 1.46, potassium 4.5. Patient has been maintained on IV Lasix 40 mg every 12 hours. No DEBBIE's and no weights recorded. 06/15 Echocardiogram reveals EF of 35-40%, dilated LV. Moderate mitral regurgitation with central jet. Aortic sclerosis. Mild to moderate tricuspid regurgitation with pulmonic regurgitation. Reviewed previous echocardiogram with EF of 40% in the past. Results reviewed with the patient. Patient states that he is feeling better today. No lower extremity edema. Blood pressure 150/76, heart rate in the 50s, afebrile, pulse ox 97% on 2 L nasal cannula. Repeat blood work reveals WBC 6.6, hemoglobin 0.4. Potassium 3.5, BUN 23 and creatinine 1.42. Telemetry is sinus rhythm. Yesterday, IV Lasix was transitioned to oral. PHYSICAL EXAMINATION Vital signs reviewed. Head: Normocephalic. Eyes: Sclerae nonicteric. Neck: Brisk carotid upstroke, no jugular venous distention. Lungs: Mild crackles. Heart: Regular rate and rhythm, S1-S2, no S3, no murmur or rub. Abdomen: Soft nontender, positive bowel sounds no organomegaly. Extremities: No edema, intact distal pulses. Neuro: Alert, oritented, no focal deficits ASSESSMENT Acute on chronic systolic heart failure Acute hypoxic respiratory failure CAD status post PCI to LAD March 2022 Essential hypertension Moderate cardiomyopathy Dyslipidemia Obesity Type II Diabetes PLAN Continue Lasix oral and decrease to 20 mg daily. Increase losartan to 50 mg daily Continue Toprol-XL 50 mg daily Continue Aspirin, atorvastatin Discontinue amlodipine Start patient on Farxiga Repeat blood work in the morning Anticipate discharge home tomorrow Nurse practitioner note has been reviewed, I agree with the documented findings and plan of care. Patient was seen and examined. Objective - Vital Signs Vital signs: Vital Signs Temp 97.6 F 06/14/23 19:28 Pulse 57 L 06/15/23 04:00 Resp 16 06/15/23 04:00 BP 150/76 06/15/23 04:00 Pulse Ox 97 06/15/23 04:00 FiO2 Intake & Output 06/14/23 06/15/23 06/15/23 18:59 06:59 18:59 Weight 88.451 kg Other: Voiding Method Toilet - Labs CBC & Chem 7: 06/15/23 08:45 06/15/23 08:45 Labs: Abnormal Lab Results - Last 24 Hours (Table) 06/14/23 06/14/23 06/14/23 Range/Units 06:32 12:33 16:50 RBC (4.30-5.90) m/uL Hgb (13.0-17.5) gm/dL Hct (39.0-53.0) % BUN (9-20) mg/dL Creatinine (0.66-1.25) mg/dL Glucose (74-99) mg/dL POC Glucose (mg/dL) 192 H 185 H (70-110) mg/dL Hemoglobin A1c 6.8 H (<=6.0) % 06/14/23 06/15/23 06/15/23 Range/Units 20:07 06:06 08:45 RBC 4.20 L (4.30-5.90) m/uL Hgb 11.4 L (13.0-17.5) gm/dL Hct 35.5 L (39.0-53.0) % BUN (9-20) mg/dL Creatinine (0.66-1.25) mg/dL Glucose (74-99) mg/dL POC Glucose (mg/dL) 119 H 124 H (70-110) mg/dL Hemoglobin A1c (<=6.0) % 06/15/23 Range/Units 08:45 RBC (4.30-5.90) m/uL Hgb (13.0-17.5) gm/dL Hct (39.0-53.0) % BUN 23 H (9-20) mg/dL Creatinine 1.42 H (0.66-1.25) mg/dL Glucose 171 H (74-99) mg/dL POC Glucose (mg/dL) (70-110) mg/dL Hemoglobin A1c (<=6.0) %
[2023-06-15 16:27] LABS: Glucose,Whole Blood 215 mg/dL (70-110)
[2023-06-15 20:12] LABS: Glucose,Whole Blood 125 mg/dL (70-110)
[2023-06-15] MEDS: FINASTERIDE 5 MG TAB PO SCH (20:43)
[2023-06-15] MEDS: LATANOPROST 0.005% OPHTH DROPS 2.5 ML BTL BOTH EYES SCH (20:43)
[2023-06-15] MEDS: LORazepam 1 MG TAB PO PRN (20:43)
[2023-06-15] MEDS ORDERED: DOXAZOSIN 4 MG TAB PO SCH (21:00)
[2023-06-16 05:49] LABS: Glucose,Whole Blood 127 mg/dL (70-110)
[2023-06-16] MEDS: INSULIN ASPART (NovoLOG) 100 UNIT/ML VIAL SQ SCH (06:07)
[2023-06-16 08:44] VITALS: BP 121/71; PULSE 61; RESP 17; TEMP 97.8
--- NOTE | 2023-06-16 08:47 | P.DS ---
Providers Date of admission: 06/13/23 01:44 Attending physician: Chalo Arvizu Consults: 06/13/23 01:43 Consult Physician Urgent Consulting Provider: [facility] Consult Reason/Comments: CHF Do you want consulting provider notified?: Yes, Notify in am Primary care physician: Chalo Arvizu - Discharge Diagnosis(es) (1) Diabetes Current Visit: Yes Status: Acute (2) History of CAD (coronary artery disease) Current Visit: Yes Status: Acute (3) Hyperlipemia Current Visit: Yes Status: Acute (4) Hypertension Current Visit: Yes Status: Acute (5) New onset of congestive heart failure Current Visit: Yes Status: Acute Hospital Course: The patient was admitted for new onset systolic congestive heart failure. Ejection fraction after having echocardiogram did show 35-40% EF. The patient was stabilized with diuresis and appropriate cardiac medication adjustment. The patient tolerated well the changes although last night he did have element of bradycardia which was a symptomatically. No chest pain shortness of breath tolerating diet emulating without oxygen and will be discharged home with appropriate medication adjustment. The patient's follow-up with me in 3-4 days. Patient Condition at Discharge: Fair Plan - Discharge Summary Discharge Rx Participant: No New Discharge Prescriptions: New Dapagliflozin Propanediol [Farxiga] 10 mg PO DAILY #30 tab Furosemide [Lasix] 20 mg PO DAILY #30 tab LORazepam [Ativan] 2 mg PO DAILY PRN tab PRN Reason: Anxiety Losartan [Cozaar] 50 mg PO DAILY #30 tab Continue Doxazosin Mesylate 8 mg PO BID sitaGLIPtin PHOS/metFORMIN HCL [Janumet 50-500 mg Tablet] 1 tab PO BID Dutasteride 0.5 mg PO HS Aspirin [Adult Low Dose Aspirin EC] 81 mg PO DAILY Atorvastatin [Lipitor] 40 mg PO HS Ticagrelor [Brilinta] 90 mg PO BID #60 tab Olopatadine HCl [Patanol 0.1%] 1 drop BOTH EYES BID Latanoprost [Latanoprost 0.005%] 1 drop BOTH EYES HS Metoprolol Succinate [Toprol XL] 50 mg PO DAILY Discontinued amLODIPine [Norvasc] 5 mg PO DAILY Enalapril [Vasotec] 20 mg PO BID LORazepam [Ativan] 2 mg PO DAILY PRN PRN Reason: Anxiety Azithromycin [Zithromax Z Pack] See Taper PO DIRECTED Discharge Medication List Aspirin [Adult Low Dose Aspirin EC] 81 mg PO DAILY 06/17/20 [History] Doxazosin Mesylate 8 mg PO BID 06/17/20 [History] Dutasteride 0.5 mg PO HS 06/17/20 [History] sitaGLIPtin PHOS/metFORMIN HCL [Janumet 50-500 mg Tablet] 1 tab PO BID 06/17/20 [History] Atorvastatin [Lipitor] 40 mg PO HS 06/28/20 [History] Ticagrelor [Brilinta] 90 mg PO BID #60 tab 03/24/22 [Rx] Latanoprost [Latanoprost 0.005%] 1 drop BOTH EYES HS 01/04/23 [History] Olopatadine HCl [Patanol 0.1%] 1 drop BOTH EYES BID 01/04/23 [History] Metoprolol Succinate [Toprol XL] 50 mg PO DAILY 06/13/23 [History] Dapagliflozin Propanediol [Farxiga] 10 mg PO DAILY #30 tab 06/16/23 [Rx] Furosemide [Lasix] 20 mg PO DAILY #30 tab 06/16/23 [Rx] LORazepam [Ativan] 2 mg PO DAILY PRN tab 06/16/23 [Rx] Losartan [Cozaar] 50 mg PO DAILY #30 tab 06/16/23 [Rx] Follow up Appointment(s)/Referral(s): Chalo Arvizu MD [Primary Care Provider] - 3 Days Discharge Disposition: HOME SELF-CARE
[2023-06-16] MEDS: ENOXAPARIN 40 MG/0.4 ML SYRINGE SQ SCH (08:55)
[2023-06-16] MEDS: METOPROLOL SUCCINATE (ER) 50 MG TAB.ER.24H PO SCH (08:56)
[2023-06-16] MEDS: DAPAGLIFLOZIN PROPANEDIOL 10 MG TABLET PO SCH (08:56)
[2023-06-16] MEDS: ATORVASTATIN 40 MG TAB PO SCH (08:56)
[2023-06-16] MEDS: ASPIRIN 81 MG PO SCH (08:56)
[2023-06-16] MEDS: KETOTIFEN 0.025% OPHTH DROPS 5 ML BTL BOTH EYES SCH (08:57)
[2023-06-16] MEDS ORDERED: FUROSEMIDE 20 MG TAB PO SCH (09:00)
[2023-06-16] MEDS ORDERED: LOSARTAN 50 MG TAB PO SCH (09:00)
--- NOTE | 2023-06-16 14:12 | P.PN ---
Subjective Progress Note Date: 06/16/23 HISTORY OF PRESENTING ILLNESS 78-year-old with PMH of type 2 diabetes, hypertension, CAD status post PCI to LAD in March [address] Hair. He presented to the hospital with worsening shortness of breath for last 4-5 days along with significant history of orthopnea and paroxysmal nocturnal dyspnea. Lastly patient went to his primary care physician and he was treated for an cardiac or pneumonia with oral antibiotics. But for last 2-3 days he has been feeling more short of breath and because of concerns of orthopnea he presented to the ER. On admission he blood pressure 155/87, pulse 63, hemoglobin 11, WBC 7, sodium 146, potassium 3.8, BUN 25, creatinine 1.5. BNP 7000 troponin was negative. Baseline creatinine is 1.4 Chest x-ray showed cardiac megaly with moderate pulmonary congestion By the time of evaluation patient already received IV Lasix and reports symp tomatic improvement with symptoms of shortness of breath and lower extremity edema 06/14 Seen today in the emergency center as follow-up. He states he is feeling better today with shortness of breath. He states he recently had the flu about 10 days ago. No chest pain or tightness. He states he does not have chronic shortness of breath. Echocardiogram is pending. Blood pressure 144/79, heart rate in the 50s and 60s, pulse ox 96% on 2 L. Hemoglobin 12.1, BUN 25, creatinine 1.46, potassium 4.5. Patient has been maintained on IV Lasix 40 mg every 12 hours. No DEBBIE's and no weights recorded. 06/15 Echocardiogram reveals EF of 35-40%, dilated LV. Moderate mitral regurgitation with central jet. Aortic sclerosis. Mild to moderate tricuspid regurgitation with pulmonic regurgitation. Reviewed previous echocardiogram with EF of 40% in the past. Results reviewed with the patient. Patient states that he is feeling better today. No lower extremity edema. Blood pressure 150/76, heart rate in the 50s, afebrile, pulse ox 97% on 2 L nasal cannula. Repeat blood work reveals WBC 6.6, hemoglobin 0.4. Potassium 3.5, BUN 23 and creatinine 1.42. Telemetry is sinus rhythm. Yesterday, IV Lasix was transitioned to oral. 06/16 Patient denies any new concerns today. He states his breathing is doing well. No chest pain, no lightheadedness or dizziness. He states he has been a manipulating in the hallway and is anxious to go home today. Reminded patient that he is not to be unrelenting at the time of discharge. Blood pressure 121/71, heart rate 61, afebrile, pulse ox 96% on room air. PHYSICAL EXAMINATION Vital signs reviewed. Head: Normocephalic. Eyes: Sclerae nonicteric. Neck: Brisk carotid upstroke, no jugular venous distention. Lungs: Mild crackles. Heart: Regular rate and rhythm, S1-S2, no S3, no murmur or rub. Abdomen: Soft nontender, positive bowel sounds no organomegaly. Extremities: No edema, intact distal pulses. Neuro: Alert, oritented, no focal deficits ASSESSMENT Acute on chronic systolic heart failure Acute hypoxic respiratory failure CAD status post PCI to LAD March 2022 Essential hypertension Moderate cardiomyopathy Dyslipidemia Obesity Type II Diabetes PLAN Continue Lasix oral 20 mg daily. Continue current cardiac medications 50 mg daily Discontinue amlodipine and brilinta She has cleared from cardiology for discharge and may follow-up in the office in one to 2 weeks. Nurse practitioner note has been reviewed, I agree with the documented findings and plan of care. Patient was seen and examined. Objective - Vital Signs Vital signs: Vital Signs Temp 97.8 F 06/16/23 08:00 Pulse 61 06/16/23 08:00 Resp 17 06/16/23 08:00 BP 121/71 06/16/23 08:00 Pulse Ox 96 06/16/23 08:00 FiO2 Intake & Output 06/15/23 06/16/23 06/16/23 18:59 06:59 18:59 Intake Total 40 40 20 Balance 40 40 20 Weight 88.451 kg Intake: IV 40 40 20 Invasive Line 1 20 20 10 Invasive Line 2 20 20 10 Other: Voiding Method Toilet Toilet # Voids 1 1 - Labs CBC & Chem 7: 06/15/23 08:45 06/15/23 08:45 Labs: Abnormal Lab Results - Last 24 Hours (Table) 06/15/23 06/15/23 06/15/23 Range/Units 08:45 08:45 11:36 RBC 4.20 L (4.30-5.90) m/uL Hgb 11.4 L (13.0-17.5) gm/dL Hct 35.5 L (39.0-53.0) % BUN 23 H (9-20) mg/dL Creatinine 1.42 H (0.66-1.25) mg/dL Glucose 171 H (74-99) mg/dL POC Glucose (mg/dL) 138 H (70-110) mg/dL 06/15/23 06/15/23 06/16/23 Range/Units 16:25 20:10 05:48 RBC (4.30-5.90) m/uL Hgb (13.0-17.5) gm/dL Hct (39.0-53.0) % BUN (9-20) mg/dL Creatinine (0.66-1.25) mg/dL Glucose (74-99) mg/dL POC Glucose (mg/dL) 215 H 125 H 127 H (70-110) mg/dL
== END 2023-06-16 09:47 | disposition home or self-care (01) | DRG 291 ==
LOC: EC 00:09 → 3SCARD 01:44
PROVIDERS: ADMIT Family Medicine; ATTEND Family Medicine
DX: I11.0 Hypertensive heart disease with heart failure (principal); I50.21 Acute systolic (congestive) heart failure; J96.01 Acute respiratory failure with hypoxia; I25.10 Atherosclerotic heart disease of native coronary artery without angina pectoris; I42.9 Cardiomyopathy, unspecified; E11.9 Type 2 diabetes mellitus without complications; I08.3 Combined rheumatic disorders of mitral, aortic and tricuspid valves; G47.30 Sleep apnea, unspecified; I44.0 Atrioventricular block, first degree; E78.5 Hyperlipidemia, unspecified; E66.9 Obesity, unspecified; Z96.659 Presence of unspecified artificial knee joint; Z98.61 Coronary angioplasty status; Z68.30 Body mass index [BMI] 30.0-30.9, adult; Z87.01 Personal history of pneumonia (recurrent); Z79.899 Other long term (current) drug therapy; Z79.82 Long term (current) use of aspirin; Z79.02 Long term (current) use of antithrombotics/antiplatelets; Z88.6 Allergy status to analgesic agent; Z87.891 Personal history of nicotine dependence; Z79.84 Long term (current) use of oral hypoglycemic drugs
CPT/HCPCS: 36415; 71046; 80048; 80053; 83036; 83605; 83880; 84484; 85025; 85027; 85610; 85730; 93005; 93306; 94760; 96372; 96374; 96376; 99285

== ENCOUNTER → 2023-06-23 | Outpatient (CLI) | payer MEDICARE | END | disposition home or self-care (01) | LOC: LABWHC1 09:12 | PROVIDERS: ATTEND Ophthalmology | DX: E11.9 Type 2 diabetes mellitus without complications (principal); H43.813 Vitreous degeneration, bilateral | CPT/HCPCS: 36415; 85652; 86140 ==

== ENCOUNTER → 2024-05-09 | Outpatient (CLI) | payer MEDICARE ==
[2024-05-09 16:51] LABS: T4, Free (Free Thyroxine) 1.17 ng/dL (0.80-1.80)
== END | disposition home or self-care (01) ==
LOC: LABWHC1 10:14
PROVIDERS: ATTEND Internal Medicine Interventional Cardiology
DX: E03.9 Hypothyroidism, unspecified (principal)
CPT/HCPCS: 36415; 84439; 84443

== ENCOUNTER → 2024-11-13 | Outpatient (CLI) | payer MEDICARE ==
[2024-11-13 15:29] LABS: T4, Free (Free Thyroxine) 1.02 ng/dL (0.80-1.80)
== END | disposition home or self-care (01) ==
LOC: LABWHC1 09:09
PROVIDERS: ATTEND Internal Medicine Interventional Cardiology
DX: I25.5 Ischemic cardiomyopathy (principal)
CPT/HCPCS: 36415; 84439; 84443